=== PATIENT | male | born 1940 | race Caucasian/White ===

== ENCOUNTER 2018-03-04 06:02 | Day surgery (SDC) | payer MEDICARE ==
[2018-03-03 11:41] LABS: BASOPHILS % (AUTO) 0.5 % (0-1); EOSINOPHILS # (AUTO) 0.3 X10'3 (0-0.9); EOSINOPHILS % (AUTO) 4.6 % (0-6); HEMATOCRIT 36.9 % (42.0-52.0); HEMOGLOBIN 12.4 g/dl (14.0-17.9); LYMPHOCYTES # (AUTO) 1.2 X10'3 (1.1-4.8); LYMPHOCYTES % (AUTO) 21.3 % (21-51); MEAN CORPUSCULAR HEMOGLOBIN 31.6 PG (27.0-31.0); MEAN CORPUSCULAR HGB CONC 33.5 % (33.0-36.5); MEAN CORPUSCULAR VOLUME 94.2 FL (78-98); MEAN PLATELET VOLUME 7.5 FL (7.4-10.4); MONOCYTES # (AUTO) 0.4 X10'3 (0-0.9); NEUTROPHILS # (AUTO) 3.6 X10'3 (1.8-7.7); NEUTROPHILS % (AUTO) 65.6 % (42-75); PLATELET COUNT 297 X10'3 (140-440); RED BLOOD COUNT 3.92 X10'6 (4.70-6.10); RED CELL DISTRIBUTION WIDTH 13.3 % (11.5-14.5); WHITE BLOOD COUNT 5.5 X10'3 (4.5-11.0)
[2018-03-03 11:53] LABS: ALBUMIN 3.5 G/DL (3.4-5.0); ANION GAP 10 (8-16); BLOOD UREA NITROGEN 21 MG/DL (7-18); BUN/CREATININE RATIO 19.6 (5.4-32.0); CHLORIDE 104 MMOL/L (99-107); CREATININE 1.07 MG/DL (0.60-1.10); GLUCOSE 142 MG/DL (70-104); SODIUM 140 MMOL/L (135-145); eGFR 67 ML/MIN
[2018-03-03 11:58] LABS: PARTIAL THROMBOPLASTIN TIME 31 SECONDS (22-32); PROTHROMBIN TIME 10.5 SECONDS (9.0-12.0)
[2018-03-04] VITALS (26 sets, daily range): BP systolic 117–169; BP diastolic 63–98
[~2018-03-04] VITALS: Ht 177.8 cm; Wt 110.9 kg
[~2018-03-04 06:02] MED LIST: ALLO100T PO; ASPI-1264 PO; CALC-793 PO; CLOP75TA35 PO; CYC1OS LEFTEYE; LINA5TAB4 PO; MAGN400C PO; NITR0.4T51 SL; OMEG-15 PO; SIMV20TA5 PO
[2018-03-04] MEDS ORDERED: sod bicarbonate 150mEq in D5W 1,150 ML IV ONE (06:25)
[2018-03-04] MEDS ORDERED: diphenhydrAMINE 25mg capsule PO PRN (06:25)
[2018-03-04] MEDS ORDERED: acetylcysteine 200 MG/ml 4ml vial PO PRN (06:25)
[2018-03-04] MEDS ORDERED: LOSA100T57 PO (06:38)
[2018-03-04] MEDS ORDERED: CARV-50 PO (06:38)
[2018-03-04] MEDS ORDERED: POTA10TA19 PO (06:38)
[2018-03-04] MEDS ORDERED: ISOS30TA6 PO (06:38)
[2018-03-04] MEDS ORDERED: GLIM1TAB46 PO (06:38)
[2018-03-04] MEDS ORDERED: LORazepam 0.5 MG tablet PO ONE (07:15)
[2018-03-04] MEDS ORDERED: normal saline 1000ml 1,000 ML IV SCH (07:15)
[2018-03-04] MEDS ORDERED: nitroGLYCERIN-Tridil 50MG/D5W 250 ML IV ONE (07:41)
[2018-03-04] MEDS ORDERED: heparin 1,000unit/ml 10ml vial 10 ML ONE (07:42)
[2018-03-04] MEDS ORDERED: iohexol 350 MG/ML 50ML vial IV ONE (07:42)
[2018-03-04] MEDS ORDERED: iohexol 350 MG/1 ML 200ml bottle ONE (07:42)
[2018-03-04] MEDS ORDERED: midazolam 2 mg/2 ml injection ONE ×2 (07:42→09:45)
[2018-03-04] MEDS ORDERED: LIDOcaine 1% (10mg/ml)w/preservative injection 20ml MDV ONE ×2 (07:42→13:36)
[2018-03-04] MEDS ORDERED: fentaNYL/PF 50MCG/1 ML 2ML syringe ONE ×2 (07:42→09:45)
[2018-03-04] MEDS ORDERED: heparin 25,000 UNIT/250ml bag 250 ML IV ONE (08:52)
[2018-03-04] MEDS ORDERED: iohexol 350MG/ML 100ml bottle IV ONE ×2 (09:03→09:48)
[2018-03-04] MEDS ORDERED: clopidogrel 300mg tablet ONE (09:19)
[2018-03-04] MEDS ORDERED: heparin 1,000 UNITS/NS 500ml 500 ML ONE (09:26)
[2018-03-04] MEDS ORDERED: proCHLORperazine 10 MG/2 ml inj IV PRN (11:45)
[2018-03-04] MEDS ORDERED: magnesium hydroxide 30ml (MOM) UD suspension PO PRN (11:45)
[2018-03-04] MEDS ORDERED: OXAZEpam 15mg capsule PO PRN (11:45)
[2018-03-04] MEDS ORDERED: acetaminophen 325mg tablet PO PRN (11:45)
[2018-03-04] MEDS ORDERED: HYDROcodone/acetaminophen 10/325mg tab PO PRN ×2 (11:45→11:50)
[2018-03-04] MEDS ORDERED: cyclobenzaprine 10mg tablet PO PRN (11:50)
[2018-03-04] MEDS ORDERED: aspirin 81mg tab.chew PO ONE (11:50)
[2018-03-04 13:36] LABS: ISTAT Hct MIX 32 %PCV (42-52); ISTAT O2 SATURATION MIX VENOUS 70 % (60-80); ISTAT SOURCE MIX
[2018-03-04 13:36] LABS: ISTAT HGB ART 10.9 g/dl (14.0-18.0); ISTAT Hct ART 32 %PCV (42-52); ISTAT O2 SATURATION ARTERIAL 93 % (95-98); ISTAT SOURCE ART
--- NOTE | 2018-03-04 16:19 | NUR ---
occurrence #2 is PT's art line. The art line is being transduced and is at the phlebostatic axis. Addendum: 03/04/18 at 1627 by Kavita Mclean RN Amended: Links added.
[2018-03-04] MEDS ORDERED: docusate sod 100mg capsule PO SCH (20:00)
[2018-03-05] MEDS ORDERED: clopidogrel 75mg tablet PO SCH (08:00)
[2018-03-05] MEDS ORDERED: aspirin 325mg tablet PO SCH (08:30)
== END 2018-03-04 20:00 | disposition home or self-care (01) ==
LOC: SSTAY O 06:02
PROVIDERS: ATTEND Internal Medicine Cardiovascular Disease
DX: I25.708 Atherosclerosis of coronary artery bypass graft(s), unspecified, with other forms of angina pectoris (principal); E78.5 Hyperlipidemia, unspecified; I11.0 Hypertensive heart disease with heart failure; I50.9 Heart failure, unspecified; G47.33 Obstructive sleep apnea (adult) (pediatric); I45.19 Other right bundle-branch block; I27.20 Pulmonary hypertension, unspecified; M19.90 Unspecified osteoarthritis, unspecified site; J45.998 Other asthma; K21.9 Gastro-esophageal reflux disease without esophagitis; E11.42 Type 2 diabetes mellitus with diabetic polyneuropathy; H91.8X3 Other specified hearing loss, bilateral; Z92.3 Personal history of irradiation; Z87.09 Personal history of other diseases of the respiratory system; Z79.82 Long term (current) use of aspirin; Z85.46 Personal history of malignant neoplasm of prostate; Z95.1 Presence of aortocoronary bypass graft; Z95.2 Presence of prosthetic heart valve; Z86.73 Personal history of transient ischemic attack (TIA), and cerebral infarction without residual deficits; Z95.5 Presence of coronary angioplasty implant and graft; Z88.5 Allergy status to narcotic agent; Z88.6 Allergy status to analgesic agent; Z86.69 Personal history of other diseases of the nervous system and sense organs; Z87.891 Personal history of nicotine dependence; Z87.442 Personal history of urinary calculi; Z87.39 Personal history of other diseases of the musculoskeletal system and connective tissue; Z88.8 Allergy status to other drugs, medicaments and biological substances; Z98.890 Other specified postprocedural states; Z79.899 Other long term (current) drug therapy; Z82.49 Family history of ischemic heart disease and other diseases of the circulatory system; Z80.9 Family history of malignant neoplasm, unspecified
CPT/HCPCS: 36415; 80048; 82803; 82948; 85014; 85025; 85347; 85610; 85730; 93005; 93461; 99152; 99153; A6257; C1874; C1887; C9600; C9601; J1644; J2001; J2250; J3010; J7030; Q0163; Q9967; A4620; C1725; C1769; C1894; J3490

== ENCOUNTER 2018-06-17 08:20 | Outpatient (CLI) | payer MEDICARE ==
[2018-06-17] VITALS (9 sets, daily range): BP systolic 145–195; BP diastolic 70–87
[~2018-06-17] VITALS: Ht 177.8 cm; Wt 111.8 kg
[~2018-06-17 08:20] MED LIST changes: -ALLO100T PO; -CALC-793 PO; +CARV-50 PO; -CYC1OS LEFTEYE; +GLIM1TAB46 PO; +ISOS30TA6 PO; +LOSA100T57 PO; -OMEG-15 PO; +POTA10TA19 PO
[2018-06-17] MEDS ORDERED: nitroGLYCERIN 0.4mg SUBLingual tab SL PRN (09:15)
[2018-06-17] MEDS ORDERED: aminophylline 250mg/10ml inj. IV PRN (09:15)
[2018-06-17] MEDS ORDERED: metoprolol tartrate 1mg/ml inj IV PRN (09:15)
[2018-06-17] MEDS ORDERED: regadenoson 0.4mg/5ml syringe IV ONE ×2 (09:15→09:35)
[2018-06-17] MEDS ORDERED: aminophylline inj. 10 ML IV ONE (09:35)
[2018-06-17] MEDS ORDERED: nitroGLYCERIN 0.4mg SUBLingual tab SL ONE (09:56)
== END 2018-06-17 23:59 | disposition home or self-care (01) ==
LOC: RAD 08:20
PROVIDERS: ATTEND Internal Medicine Cardiovascular Disease
DX: R07.9 Chest pain, unspecified (principal); R06.02 Shortness of breath; R53.83 Other fatigue
CPT/HCPCS: 78452; 93017; A9500; J0280

== ENCOUNTER 2018-09-23 13:29 | Observation (INO) | payer MEDICARE ==
[~2018-09-23] VITALS: Ht 177.8 cm; Wt 111.5 kg
[~2018-09-23 13:29] MED LIST changes: +GLIM1TAB3 PO; -GLIM1TAB46 PO
[2018-09-23 14:03] LABS: BASOPHILS % (AUTO) 0.9 % (0-1); EOSINOPHILS # (AUTO) 0.3 X10'3 (0-0.9); EOSINOPHILS % (AUTO) 6.3 % (0-6); HEMATOCRIT 37.2 % (42.0-52.0); HEMOGLOBIN 12.5 g/dl (14.0-17.9); LYMPHOCYTES # (AUTO) 1.4 X10'3 (1.1-4.8); LYMPHOCYTES % (AUTO) 32.3 % (21-51); MEAN CORPUSCULAR HGB CONC 33.7 g/dL (33.0-36.5); MEAN PLATELET VOLUME 7.3 FL (7.4-10.4); MONOCYTES # (AUTO) 0.4 X10'3 (0-0.9); MONOCYTES % (AUTO) 9.7 % (2-12); NEUTROPHILS # (AUTO) 2.3 X10'3 (1.8-7.7); NEUTROPHILS % (AUTO) 50.8 % (42-75); PLATELET COUNT 226 X10'3 (140-440); RED BLOOD COUNT 3.92 X10'6 (4.70-6.10); RED CELL DISTRIBUTION WIDTH 14.1 % (11.5-14.5); WHITE BLOOD COUNT 4.4 X10'3 (4.5-11.0)
[2018-09-23 14:17] LABS: PARTIAL THROMBOPLASTIN TIME 30 SECONDS (22-32)
[2018-09-23 14:19] LABS: ALANINE AMINOTRANSFERASE 21 U/L (12-78); ALBUMIN 3.7 G/DL (3.4-5.0); ALBUMIN/GLOBULIN RATIO 1.1 (1.1-1.5); ALKALINE PHOSPHATASE 91 IU/L (46-116); ANION GAP 5 (8-16); ASPARTATE AMINO TRANSFERASE 8 U/L (10-37); BILIRUBIN,TOTAL 0.8 MG/DL (0.1-1.0); BLOOD UREA NITROGEN 19 MG/DL (7-18); BUN/CREATININE RATIO 15.6 (5.4-32.0); CALCIUM 9.1 MG/DL (8.5-10.1); CHLORIDE 107 MMOL/L (99-107); CREATININE 1.22 MG/DL (0.60-1.10); GLUCOSE 98 MG/DL (70-104); POTASSIUM 4.5 MMOL/L (3.5-5.1); SODIUM 141 MMOL/L (135-145); TOTAL CARBON DIOXIDE 28.6 MMOL/L (24-32); eGFR 57 ML/MIN
[2018-09-23] MEDS ORDERED: normal saline 1000ML IV soln IVB ONE (15:15)
[2018-09-23] MEDS: normal saline 1000ml 1,000 ML IV SCH ×2 (15:26→22:41)
[2018-09-23] MEDS ORDERED: ASPI-974 PO (15:30)
[2018-09-23] MEDS ORDERED: morphine 2 MG/ML inj. syringe IV PRN ×2 (15:30)
[2018-09-23] MEDS ORDERED: ondansetron/PF 4mg/2ml inj IV PRN (15:30)
[2018-09-23] MEDS ORDERED: acetaminophen 325mg tablet PO PRN ×2 (15:30)
[2018-09-23] MEDS ORDERED: HYDROcodone/acetaminophen 5mg/325mg tablet PO PRN (15:30)
[2018-09-23] MEDS ORDERED: mag hydrox/Alum hydrox/simeth 30ml oral suspension PO PRN (15:30)
[2018-09-23] MEDS ORDERED: magnesium hydroxide 30ml (MOM) UD suspension PO PRN (15:30)
[2018-09-23] MEDS ORDERED: CLON0.1T20 PO (15:34)
[2018-09-23] MEDS ORDERED: ATOR40TA71 PO (15:34)
[2018-09-23] MEDS ORDERED: CITA20TA2 PO (15:34)
[2018-09-23] MEDS ORDERED: PIOG30TA71 PO (15:34)
[2018-09-23] MEDS ORDERED: AMLO5TAB PO (15:34)
[2018-09-23] MEDS ORDERED: FURO-150 PO (15:34)
--- NOTE | 2018-09-23 15:39 | NUR ---
MEDICATED PT WITH 500ML NS BOLUS PER ORDERS, GAVE PT A CUP OF WATER OK PER DR SANDOVAL, OBTAINED URINE SAMPLE PER ORDERS AND SENT TO LAB. PHARMACY UPDATING MED REC, PT RESTING COMFORTABLY, ORIENTED TO CALL LIGHT
[2018-09-23 15:51] LABS: CLARITY,URINE CLEAR (Clear); COLOR,URINE YELLOW (Yellow); GLUCOSE, URINE NEGATIVE (Neg); KETONES,URINE NEGATIVE (Neg); LEUKOCYTE ESTERASE ,URINE NEGATIVE (Neg); NITRITES, URINE NEGATIVE (Neg); OCCULT BLOOD,URINE NEGATIVE (Neg); PROTEIN,URINE NEGATIVE (Neg)
[2018-09-23 15:54] LABS: UA COLLECTION TYPE VOIDED
--- NOTE | 2018-09-23 16:45 | NUR ---
received pt report from Jenise RN; all questions answered.
[2018-09-23 17:00] VITALS: BP 125/79
--- NOTE | 2018-09-23 17:00 | NUR ---
pt arrived to floor via gurney and transferred to bed. pt attached to cardiac monitoring; VSS. pt oriented to room and call light
[2018-09-23] MEDS ORDERED: glucagon, human recombinant 1mg kit SUBCUT PRN (18:00)
[2018-09-23] MEDS ORDERED: insulin Lispro (HumaLOG) vial - multi-dose SQ SCH (18:00)
[2018-09-23] MEDS ORDERED: dextrose 50%-water 50ml dispensing syringe IV PRN ×2 (18:00)
[2018-09-23] MEDS ORDERED: nitroGLYCERIN 0.4mg SUBLingual tab SL PRN (18:00)
[2018-09-23] MEDS ORDERED: MESSAGE TO PHARMACY PO ONE (18:00)
[2018-09-23] MEDS ORDERED: dextrose ORAL solution 15 GM/59 ML bottle PO PRN ×2 (18:00)
--- NOTE | 2018-09-23 18:10 | NUR ---
pt report given to Kavita SAVAGE; all questions answered.
--- NOTE | 2018-09-23 18:11 | NUR ---
Patient in room MED 313. I have received report from Inga SAVAGE and had the opportunity to ask questions and assume patient care. Checked on patient, did 2 RN skin check. Will continue to monitor.
[2018-09-23 19:00] VITALS: BP 134/86
[2018-09-23 20:00] VITALS: BP_SYST 127; BP_SYST 132; BP_SYST 160; BP_DIAS 114; BP_DIAS 68; BP_DIAS 92
[2018-09-23 20:58] LABS: HEMOGLOBIN A1C 6.7 % (4.5-6.2)
[2018-09-23] MEDS ORDERED: insulin glargine (Lantus) pen - multi-dose SQ SCH (21:00)
[2018-09-23 23:00] VITALS: BP 127/68
[2018-09-24 02:08] LABS: BASOPHILS # (AUTO) 0.1 X10'3 (0-0.2); BASOPHILS % (AUTO) 1.2 % (0-1); EOSINOPHILS # (AUTO) 0.3 X10'3 (0-0.9); HEMATOCRIT 34.8 % (42.0-52.0); HEMOGLOBIN 11.8 g/dl (14.0-17.9); LYMPHOCYTES # (AUTO) 1.2 X10'3 (1.1-4.8); MEAN CORPUSCULAR HEMOGLOBIN 32.1 PG (27.0-31.0); MEAN CORPUSCULAR HGB CONC 33.9 g/dL (33.0-36.5); MEAN CORPUSCULAR VOLUME 94.6 FL (78-98); MEAN PLATELET VOLUME 7.3 FL (7.4-10.4); MONOCYTES # (AUTO) 0.5 X10'3 (0-0.9); MONOCYTES % (AUTO) 8.6 % (2-12); NEUTROPHILS # (AUTO) 3.3 X10'3 (1.8-7.7); NEUTROPHILS % (AUTO) 61.2 % (42-75); PLATELET COUNT 183 X10'3 (140-440); RED BLOOD COUNT 3.68 X10'6 (4.70-6.10); RED CELL DISTRIBUTION WIDTH 13.8 % (11.5-14.5); WHITE BLOOD COUNT 5.4 X10'3 (4.5-11.0)
[2018-09-24 02:21] LABS: ALBUMIN 3.2 G/DL (3.4-5.0); ANION GAP 6 (8-16); BLOOD UREA NITROGEN 15 MG/DL (7-18); BUN/CREATININE RATIO 14.2 (5.4-32.0); CALCIUM 8.7 MG/DL (8.5-10.1); CHLORIDE 109 MMOL/L (99-107); CREATININE 1.06 MG/DL (0.60-1.10); GLUCOSE 111 MG/DL (70-104); POTASSIUM 3.9 MMOL/L (3.5-5.1); SODIUM 142 MMOL/L (135-145); TOTAL CARBON DIOXIDE 27.1 MMOL/L (24-32); eGFR 67 ML/MIN
[2018-09-24 03:00] VITALS: BP 133/58
--- NOTE | 2018-09-24 06:10 | NUR ---
Problems reprioritized. Patient report given, questions answered & plan of care reviewed with Inga SAVAGE.
[2018-09-24 06:30] VITALS: BP 157/74
[2018-09-24] MEDS: normal saline 1000ml 1,000 ML IV SCH (07:24)
[2018-09-24 08:00] VITALS: BP_SYST 149; BP_SYST 169; BP_SYST 175; BP_DIAS 106; BP_DIAS 86; BP_DIAS 89
[2018-09-24] MEDS ORDERED: potassium chloride 10mEq ER tablet PO SCH (08:00)
[2018-09-24] MEDS ORDERED: pioglitazone 15mg tablet PO SCH (08:00)
[2018-09-24] MEDS ORDERED: aspirin 325mg tablet PO SCH (08:00)
[2018-09-24] MEDS ORDERED: atorvastatin 20mg tablet PO SCH (08:00)
[2018-09-24] MEDS ORDERED: clopidogrel 75mg tablet PO SCH (08:00)
[2018-09-24] MEDS ORDERED: citalopram 20mg tablet PO SCH ×2 (08:00→08:35)
[2018-09-24 11:00] VITALS: BP 175/89
--- NOTE | 2018-09-24 11:29 | NUR ---
ORDER FOR CAROTID US PAGED VASCULAR ALSO PAGED PHYSICAL THERAPY FOR PT EVAL PRIOR TO DISCHARGE
[2018-09-24] MEDS ORDERED: hydrALAZINE 25 MG tablet PO PRN (12:20)
[2018-09-24 15:00] VITALS: BP 178/93
[2018-09-24] MEDS ORDERED: PIOG15TA8 PO (16:04)
[2018-09-24] MEDS ORDERED: HYDR-4069 PO (16:04)
--- NOTE | 2018-09-24 17:20 | NUR ---
DISCUSSED HOME BP MONITORING WITH PATIENT PATIENT SAYS HE HAS A HOME BP CUFF AT HOME IN WHICH HE USES TO TAKE HIS BLOOD PRESSURE "3 TIMES A DAY"; RN INSTRUCTED PATIENT THAT HYDRALAZINE HAS BEEN PRESCRIBED AN " NEEDED MEDICATION" EVERY 8 HOURS FOR HIGH BLOOD PRESSURE= HIGHER THAN 160. PATIENT VERBALIZES UNDERSTANDING.
--- NOTE | 2018-09-24 17:35 | NUR ---
d/c education provided including medications and follow up; all questions answered. pt removed from cardiac monitoring.
--- NOTE | 2018-09-24 18:14 | NUR ---
Problems reprioritized. Patient report given, questions answered & plan of care reviewed with Philly SAVAGE.
--- NOTE | 2018-09-24 18:30 | NUR ---
Patient in room MED 313. I have received report from Inga SAVAGE and had the opportunity to ask questions and assume patient care.
--- NOTE | 2018-09-24 18:40 | NUR ---
Patient remained stable. All belongings accounted for. Pt wheeled to awaiting vehicle driven by . Vehicle left without incident.
== END 2018-09-24 18:40 | disposition home or self-care (01) ==
LOC: ER 13:30 → MED 3N 16:53 → CMPBEDREQ 19:51
PROVIDERS: ADMIT Internal Medicine; ATTEND Internal Medicine
DX: I95.1 Orthostatic hypotension (principal); I25.10 Atherosclerotic heart disease of native coronary artery without angina pectoris; E78.00 Pure hypercholesterolemia, unspecified; R42 Dizziness and giddiness; E78.5 Hyperlipidemia, unspecified; F32.9 Major depressive disorder, single episode, unspecified; E11.65 Type 2 diabetes mellitus with hyperglycemia; Z79.82 Long term (current) use of aspirin; Z88.1 Allergy status to other antibiotic agents; Z86.73 Personal history of transient ischemic attack (TIA), and cerebral infarction without residual deficits
CPT/HCPCS: 36415; 71045; 80048; 80053; 81003; 82948; 83036; 83880; 84484; 85025; 85610; 85730; 87081; 93005; 93880; 96360; 96361; 97110; 97161; 97530; 99284; G0378; J1815; J7030

== ENCOUNTER 2018-10-20 11:58 | Outpatient (CLI) | payer MEDICARE ==
[2018-10-20] VITALS (19 sets, daily range): BP systolic 72–120; BP diastolic 46–61
[~2018-10-20 11:58] MED LIST changes: -ASPI-1264 PO; +ASPI-974 PO; +ATOR40TA71 PO; +CITA20TA2 PO; +FURO-150 PO; -GLIM1TAB3 PO; +HYDR-4069 PO; -LINA5TAB4 PO; -MAGN400C PO; +PIOG15TA8 PO; -SIMV20TA5 PO
== END 2018-10-20 23:59 | disposition home or self-care (01) ==
LOC: CARD DIAG 11:58
PROVIDERS: ATTEND Internal Medicine Cardiovascular Disease
DX: R42 Dizziness and giddiness (principal); I10 Essential (primary) hypertension; J45.909 Unspecified asthma, uncomplicated; E11.9 Type 2 diabetes mellitus without complications; Z87.891 Personal history of nicotine dependence
CPT/HCPCS: 93660

== ENCOUNTER 2019-10-28 12:59 | Emergency (ER) | payer MEDICARE ==
[~2019-10-28] VITALS: Ht 177.8 cm; Wt 110.9 kg
[~2019-10-28 12:59] MED LIST changes: -PIOG15TA8 PO
[2019-10-28 14:44] LABS: BASOPHILS % (AUTO) 0.2 % (0-1); EOSINOPHILS # (AUTO) 0.1 X10'3 (0-0.9); EOSINOPHILS % (AUTO) 0.7 % (0-6); HEMATOCRIT 33.2 % (42.0-52.0); HEMOGLOBIN 11.1 g/dl (14.0-17.9); LYMPHOCYTES # (AUTO) 1.6 X10'3 (1.1-4.8); LYMPHOCYTES % (AUTO) 17.7 % (21-51); MEAN CORPUSCULAR HEMOGLOBIN 31.3 PG (27.0-31.0); MEAN CORPUSCULAR HGB CONC 33.5 g/dL (33.0-36.5); MEAN CORPUSCULAR VOLUME 93.5 FL (78-98); MEAN PLATELET VOLUME 6.9 FL (7.4-10.4); MONOCYTES # (AUTO) 0.8 X10'3 (0-0.9); NEUTROPHILS # (AUTO) 6.5 X10'3 (1.8-7.7); NEUTROPHILS % (AUTO) 72.4 % (42-75); PLATELET COUNT 331 X10'3 (140-440); RED BLOOD COUNT 3.55 X10'6 (4.70-6.10); RED CELL DISTRIBUTION WIDTH 15.1 % (11.5-14.5); WHITE BLOOD COUNT 8.9 X10'3 (4.5-11.0)
[2019-10-28 14:51] LABS: ALANINE AMINOTRANSFERASE 18 U/L (12-78); ALBUMIN 3.3 G/DL (3.4-5.0); ALKALINE PHOSPHATASE 115 IU/L (46-116); ANION GAP 9 (8-16); ASPARTATE AMINO TRANSFERASE 20 U/L (10-37); BILIRUBIN,TOTAL 0.6 MG/DL (0.1-1.0); BLOOD UREA NITROGEN 38 MG/DL (7-18); CALCIUM 8.8 MG/DL (8.5-10.1); CHLORIDE 103 MMOL/L (99-107); CREATININE 1.41 MG/DL (0.60-1.10); GLUCOSE 107 MG/DL (70-104); SODIUM 139 MMOL/L (135-145); TOTAL CARBON DIOXIDE 27.4 MMOL/L (24-32); TOTAL PROTEIN 6.5 G/DL (6.4-8.2); eGFR 48 ML/MIN
[2019-10-28] MEDS ORDERED: HYDROcodone/acetaminophen 10/325mg tab PO ONE (15:45)
[2019-10-28 16:06] VITALS: BP 112/66
== END 2019-10-28 16:00 | disposition home or self-care (01) ==
LOC: ER 12:59
DX: R00.2 Palpitations (principal); M25.512 Pain in left shoulder; I25.10 Atherosclerotic heart disease of native coronary artery without angina pectoris; E78.00 Pure hypercholesterolemia, unspecified; I10 Essential (primary) hypertension; K21.9 Gastro-esophageal reflux disease without esophagitis; E11.9 Type 2 diabetes mellitus without complications; Z86.73 Personal history of transient ischemic attack (TIA), and cerebral infarction without residual deficits; Z98.61 Coronary angioplasty status; Z95.1 Presence of aortocoronary bypass graft; Z98.890 Other specified postprocedural states; Z88.5 Allergy status to narcotic agent; Z88.8 Allergy status to other drugs, medicaments and biological substances; Z79.82 Long term (current) use of aspirin; Z79.899 Other long term (current) drug therapy
CPT/HCPCS: 36415; 71045; 80053; 83880; 84484; 85025; 93005; 99285

== ENCOUNTER 2020-07-26 05:56 | Day surgery (SDC) | payer MEDICARE ==
[2020-07-25 12:01] LABS: BASOPHILS % (AUTO) 0.4 % (0-1); EOSINOPHILS # (AUTO) 0.2 X10'3 (0-0.9); EOSINOPHILS % (AUTO) 3.6 % (0-6); HEMATOCRIT 36.7 % (42.0-52.0); HEMOGLOBIN 12.4 g/dl (14.0-17.9); LYMPHOCYTES % (AUTO) 15.5 % (21-51); MEAN CORPUSCULAR HEMOGLOBIN 33.3 PG (27.0-31.0); MEAN CORPUSCULAR HGB CONC 33.6 g/dL (33.0-36.5); MEAN CORPUSCULAR VOLUME 99.1 FL (78-98); MEAN PLATELET VOLUME 7.1 FL (7.4-10.4); MONOCYTES # (AUTO) 0.6 X10'3 (0-0.9); MONOCYTES % (AUTO) 9.2 % (2-12); NEUTROPHILS # (AUTO) 4.6 X10'3 (1.8-7.7); NEUTROPHILS % (AUTO) 71.3 % (42-75); PLATELET COUNT 224 X10'3 (140-440); RED BLOOD COUNT 3.71 X10'6 (4.70-6.10); RED CELL DISTRIBUTION WIDTH 13.9 % (11.5-14.5); WHITE BLOOD COUNT 6.5 X10'3 (4.5-11.0)
[2020-07-25 12:20] LABS: ALBUMIN 3.5 G/DL (3.4-5.0); ANION GAP 10 (8-16); BLOOD UREA NITROGEN 19 MG/DL (7-18); BUN/CREATININE RATIO 15.6 (5.4-32.0); CALCIUM 8.9 MG/DL (8.5-10.1); CHLORIDE 106 MMOL/L (99-107); CREATININE 1.22 MG/DL (0.60-1.10); GLUCOSE 132 MG/DL (70-104); POTASSIUM 4.1 MMOL/L (3.5-5.1); SODIUM 143 MMOL/L (135-145); eGFR 57 ML/MIN
[2020-07-25 12:24] LABS: PARTIAL THROMBOPLASTIN TIME 28 SECONDS (22-32)
[2020-07-26] VITALS (10 sets, daily range): BP systolic 124–177; BP diastolic 58–96
[~2020-07-26] VITALS: Ht 177.8 cm; Wt 114.4 kg
[~2020-07-26 05:56] MED LIST changes: +ACET-890 PO; +ALBU18HF2 INH; +ALLO100T PO; +AMLO5TAB16 PO; +APIX5TAB3 PO; -ASPI-974 PO; +CLOP75TA34 PO; -CLOP75TA35 PO; +FERR-39 PO; -FURO-150 PO; -HYDR-4069 PO; -ISOS30TA6 PO; +ISOS30TA84 PO; +PANT40TA54 PO; +PIOG30TA72 PO; +XAL0.005OS EACHEYE
[2020-07-26] MEDS ORDERED: ceFAZolin 2gm in dextrose, iso 50 ML IV ONE (06:20)
[2020-07-26] MEDS ORDERED: ASPI-10 PO (06:30)
[2020-07-26] MEDS ORDERED: PANT-47 PO (06:30)
[2020-07-26] MEDS ORDERED: FURO-150 PO (06:30)
[2020-07-26] MEDS ORDERED: ceFAZolin 1000mg inj ONE (07:11)
[2020-07-26] MEDS ORDERED: midazolam 1 mg/ML 2ml injection ONE ×2 (07:11→09:11)
[2020-07-26] MEDS ORDERED: LIDOcaine 1% W/epiNEPHrine 1:100,000 20ml vial ONE (07:11)
[2020-07-26] MEDS ORDERED: fentaNYL/PF 50MCG/1 ML 2ML syringe ONE (07:11)
[2020-07-26] MEDS ORDERED: hydrALAZINE 20mg/ml inj. IV ONE (08:30)
[2020-07-26] MEDS ORDERED: HYDROcodone/acetaminophen 5mg/325mg tablet PO PRN (10:25)
[2020-07-26] MEDS ORDERED: HYDROcodone/acetaminophen 10/325mg tab PO PRN (10:25)
[2020-07-26] MEDS ORDERED: vancomycin/NS 1 GM ADD-VANTAGE 250 ML X 1 DOSE IV ONE (11:30)
== END 2020-07-26 15:00 | disposition home or self-care (01) ==
LOC: SSTAY O 05:56
PROVIDERS: ATTEND Internal Medicine Cardiovascular Disease
DX: I49.5 Sick sinus syndrome (principal); I48.19 Other persistent atrial fibrillation; E78.5 Hyperlipidemia, unspecified; I50.32 Chronic diastolic (congestive) heart failure; I25.10 Atherosclerotic heart disease of native coronary artery without angina pectoris; I48.0 Paroxysmal atrial fibrillation; I11.0 Hypertensive heart disease with heart failure; E11.9 Type 2 diabetes mellitus without complications; E66.3 Overweight; G47.33 Obstructive sleep apnea (adult) (pediatric); I27.20 Pulmonary hypertension, unspecified; Z98.890 Other specified postprocedural states; Z88.8 Allergy status to other drugs, medicaments and biological substances; Z79.899 Other long term (current) drug therapy; Z95.4 Presence of other heart-valve replacement; Z79.01 Long term (current) use of anticoagulants; Z95.5 Presence of coronary angioplasty implant and graft
CPT/HCPCS: 33208; 36415; 71046; 80048; 82948; 85025; 85610; 85730; 93005; 99152; 99153; C1785; C1894; C1898; J0360; J0690; J2250; J3010; J3370; A4565; A4620; A6258; A6449

== ENCOUNTER → 2020-10-19 | Emergency (ER) | payer MEDICARE ==
[~2020-10-19] VITALS: Ht 177.8 cm; Wt 109.0 kg
[~2020-10-19] MED LIST changes: -APIX5TAB3 PO; +ASPI-10 PO; -CARV-50 PO; +CARV6.252 PO; +FURO-150 PO; +PANT-47 PO; -PANT40TA54 PO; +WARF-55 PO
[2020-10-19 18:51] VITALS: BP 187/99
== END | disposition home or self-care (01) ==
LOC: ER 13:13
DX: I10 Essential (primary) hypertension (principal); R51.9 Headache, unspecified; I48.91 Unspecified atrial fibrillation; I25.10 Atherosclerotic heart disease of native coronary artery without angina pectoris; E78.00 Pure hypercholesterolemia, unspecified; K21.9 Gastro-esophageal reflux disease without esophagitis; E11.9 Type 2 diabetes mellitus without complications; Z86.73 Personal history of transient ischemic attack (TIA), and cerebral infarction without residual deficits; Z87.442 Personal history of urinary calculi; Z98.890 Other specified postprocedural states; Z88.8 Allergy status to other drugs, medicaments and biological substances; Z88.6 Allergy status to analgesic agent; Z79.82 Long term (current) use of aspirin; Z79.899 Other long term (current) drug therapy
CPT/HCPCS: 70450; 99284

== ENCOUNTER 2021-04-06 14:07 | Outpatient (CLI) | payer MEDICARE ==
[~2021-04-06] VITALS: Ht 177.8 cm; Wt 118.4 kg
[~2021-04-06 14:07] MED LIST changes: +POTA-192 PO; -POTA10TA19 PO
[2021-04-06] MEDS ORDERED: albuterol 2.5 MG/3 ML nebule NEB ONE (15:00)
== END 2021-04-06 23:59 | disposition home or self-care (01) ==
LOC: RT 14:07
PROVIDERS: ATTEND Internal Medicine Cardiovascular Disease
DX: J43.9 Emphysema, unspecified (principal); I51.7 Cardiomegaly; M40.294 Other kyphosis, thoracic region; Z79.899 Other long term (current) drug therapy
CPT/HCPCS: 71046; 94060; 94727; 94729; 94760

== ENCOUNTER 2021-06-08 14:39 | Emergency (ER) | payer MEDICARE ==
[~2021-06-08] VITALS: Ht 177.8 cm; Wt 118.6 kg
[2021-06-08 15:58] LABS: BASOPHILS # (AUTO) 0.1 X10'3 (0-0.2); EOSINOPHILS # (AUTO) 0.3 X10'3 (0-0.9); EOSINOPHILS % (AUTO) 5.1 % (0-6); HEMATOCRIT 35.9 % (42.0-52.0); HEMOGLOBIN 12.3 g/dl (14.0-17.9); LYMPHOCYTES # (AUTO) 1.2 X10'3 (1.1-4.8); LYMPHOCYTES % (AUTO) 19.6 % (21-51); MEAN CORPUSCULAR HEMOGLOBIN 32.6 PG (27.0-31.0); MEAN CORPUSCULAR HGB CONC 34.2 g/dL (33.0-36.5); MEAN CORPUSCULAR VOLUME 95.5 FL (78-98); MEAN PLATELET VOLUME 7.3 FL (7.4-10.4); MONOCYTES # (AUTO) 0.6 X10'3 (0-0.9); MONOCYTES % (AUTO) 9.1 % (2-12); NEUTROPHILS % (AUTO) 65.2 % (42-75); PLATELET COUNT 213 X10'3 (140-440); RED BLOOD COUNT 3.76 X10'6 (4.70-6.10); RED CELL DISTRIBUTION WIDTH 13.8 % (11.5-14.5); WHITE BLOOD COUNT 6.2 X10'3 (4.5-11.0)
[2021-06-08 16:09] LABS: ALANINE AMINOTRANSFERASE 20 U/L (12-78); ALBUMIN 3.6 G/DL (3.4-5.0); ALBUMIN/GLOBULIN RATIO 1.2 (1.1-1.5); ALKALINE PHOSPHATASE 115 IU/L (46-116); ANION GAP 7 (8-16); ASPARTATE AMINO TRANSFERASE 12 U/L (10-37); BILIRUBIN,TOTAL 0.9 MG/DL (0.1-1.0); BLOOD UREA NITROGEN 12 MG/DL (7-18); BUN/CREATININE RATIO 10.3 (5.4-32.0); CALCIUM 8.6 MG/DL (8.5-10.1); CHLORIDE 104 MMOL/L (99-107); CREATININE 1.16 MG/DL (0.60-1.10); GLUCOSE 130 MG/DL (70-104); POTASSIUM 3.5 MMOL/L (3.5-5.1); SODIUM 140 MMOL/L (135-145); TOTAL CARBON DIOXIDE 29.5 MMOL/L (24-32); TOTAL PROTEIN 6.5 G/DL (6.4-8.2); eGFR 60 ML/MIN
[2021-06-08 17:39] VITALS: BP 160/85
== END 2021-06-08 22:39 | disposition home or self-care (01) ==
LOC: ER 14:40
DX: M79.602 Pain in left arm (principal); R53.83 Other fatigue; I10 Essential (primary) hypertension; I48.91 Unspecified atrial fibrillation; E78.00 Pure hypercholesterolemia, unspecified; K21.9 Gastro-esophageal reflux disease without esophagitis; E11.9 Type 2 diabetes mellitus without complications; Z86.73 Personal history of transient ischemic attack (TIA), and cerebral infarction without residual deficits; Z87.442 Personal history of urinary calculi; Z95.5 Presence of coronary angioplasty implant and graft; Z95.0 Presence of cardiac pacemaker; Z79.899 Other long term (current) drug therapy; Z88.8 Allergy status to other drugs, medicaments and biological substances; Z79.82 Long term (current) use of aspirin; Z79.01 Long term (current) use of anticoagulants
CPT/HCPCS: 36415; 71045; 80053; 83880; 84484; 85025; 93005; 99285

== ENCOUNTER 2021-08-14 16:19 | Emergency (ER) | payer MEDICARE ==
[~2021-08-14] VITALS: Ht 177.8 cm; Wt 118.6 kg
[2021-08-14 17:01] LABS: BASOPHILS % (AUTO) 0.6 % (0-1); EOSINOPHILS # (AUTO) 0.2 X10'3 (0-0.9); EOSINOPHILS % (AUTO) 5.1 % (0-6); HEMATOCRIT 33.1 % (42.0-52.0); LYMPHOCYTES % (AUTO) 23.7 % (21-51); MEAN CORPUSCULAR HEMOGLOBIN 31.7 PG (27.0-31.0); MEAN CORPUSCULAR HGB CONC 33.1 g/dL (33.0-36.5); MEAN CORPUSCULAR VOLUME 95.9 FL (78-98); MEAN PLATELET VOLUME 7.3 FL (7.4-10.4); MONOCYTES # (AUTO) 0.4 X10'3 (0-0.9); NEUTROPHILS # (AUTO) 2.6 X10'3 (1.8-7.7); NEUTROPHILS % (AUTO) 60.6 % (42-75); PLATELET COUNT 216 X10'3 (140-440); RED BLOOD COUNT 3.45 X10'6 (4.70-6.10); WHITE BLOOD COUNT 4.2 X10'3 (4.5-11.0)
[2021-08-14 17:25] LABS: ALANINE AMINOTRANSFERASE 18 U/L (12-78); ALBUMIN 3.5 G/DL (3.4-5.0); ALBUMIN/GLOBULIN RATIO 1.2 (1.1-1.5); ALKALINE PHOSPHATASE 99 IU/L (46-116); ANION GAP 11 (8-16); ASPARTATE AMINO TRANSFERASE 13 U/L (10-37); BILIRUBIN,TOTAL 0.7 MG/DL (0.1-1.0); BLOOD UREA NITROGEN 19 MG/DL (7-18); BUN/CREATININE RATIO 13.7 (5.4-32.0); CALCIUM 8.7 MG/DL (8.5-10.1); CHLORIDE 108 MMOL/L (99-107); CREATININE 1.39 MG/DL (0.60-1.10); GLUCOSE 100 MG/DL (70-104); POTASSIUM 3.9 MMOL/L (3.5-5.1); SODIUM 147 MMOL/L (135-145); TOTAL CARBON DIOXIDE 28.2 MMOL/L (24-32); TOTAL PROTEIN 6.5 G/DL (6.4-8.2); eGFR 49 ML/MIN
[2021-08-15 00:27] VITALS: BP 150/70
== END 2021-08-15 00:35 | disposition home or self-care (01) ==
LOC: ER 16:20
DX: R07.89 Other chest pain (principal); R60.0 Localized edema; R06.02 Shortness of breath; M79.89 Other specified soft tissue disorders; I48.91 Unspecified atrial fibrillation; I25.10 Atherosclerotic heart disease of native coronary artery without angina pectoris; E78.00 Pure hypercholesterolemia, unspecified; I10 Essential (primary) hypertension; K21.9 Gastro-esophageal reflux disease without esophagitis; E11.9 Type 2 diabetes mellitus without complications; Z86.73 Personal history of transient ischemic attack (TIA), and cerebral infarction without residual deficits; Z87.442 Personal history of urinary calculi; Z98.890 Other specified postprocedural states; Z95.0 Presence of cardiac pacemaker; Z88.6 Allergy status to analgesic agent; Z88.8 Allergy status to other drugs, medicaments and biological substances; Z79.82 Long term (current) use of aspirin; Z79.899 Other long term (current) drug therapy
CPT/HCPCS: 36415; 71045; 80053; 83880; 84484; 85025; 93005; 99285

== ENCOUNTER 2021-09-23 16:46 | Emergency (ER) | payer MEDICARE ==
[~2021-09-23] VITALS: Ht 172.7 cm; Wt 110.0 kg
[2021-09-23] MEDS ORDERED: furosemide 40mg/4ml inj IV ONE (18:00)
[2021-09-23 18:13] LABS: BASOPHILS % (AUTO) 0.6 % (0-1); EOSINOPHILS # (AUTO) 0.2 X10'3 (0-0.9); EOSINOPHILS % (AUTO) 4.9 % (0-6); HEMATOCRIT 34.5 % (42.0-52.0); HEMOGLOBIN 11.7 g/dl (14.0-17.9); LYMPHOCYTES # (AUTO) 0.9 X10'3 (1.1-4.8); LYMPHOCYTES % (AUTO) 19.9 % (21-51); MEAN CORPUSCULAR HEMOGLOBIN 32.9 PG (27.0-31.0); MEAN CORPUSCULAR HGB CONC 33.8 g/dL (33.0-36.5); MEAN CORPUSCULAR VOLUME 97.3 FL (78-98); MONOCYTES # (AUTO) 0.5 X10'3 (0-0.9); MONOCYTES % (AUTO) 9.8 % (2-12); NEUTROPHILS % (AUTO) 64.8 % (42-75); PLATELET COUNT 196 X10'3 (140-440); RED BLOOD COUNT 3.55 X10'6 (4.70-6.10); RED CELL DISTRIBUTION WIDTH 14.9 % (11.5-14.5); WHITE BLOOD COUNT 4.6 X10'3 (4.5-11.0)
[2021-09-23 18:44] LABS: ALANINE AMINOTRANSFERASE 21 U/L (12-78); ALBUMIN 3.4 G/DL (3.4-5.0); ALBUMIN/GLOBULIN RATIO 1.1 (1.1-1.5); ALKALINE PHOSPHATASE 95 IU/L (46-116); ANION GAP 10 (8-16); ASPARTATE AMINO TRANSFERASE 12 U/L (10-37); BILIRUBIN,TOTAL 0.7 MG/DL (0.1-1.0); BLOOD UREA NITROGEN 24 MG/DL (7-18); BUN/CREATININE RATIO 17.4 (5.4-32.0); CALCIUM 8.7 MG/DL (8.5-10.1); CHLORIDE 105 MMOL/L (99-107); CREATININE 1.38 MG/DL (0.60-1.10); GLUCOSE 172 MG/DL (70-104); POTASSIUM 3.8 MMOL/L (3.5-5.1); SODIUM 141 MMOL/L (135-145); TOTAL CARBON DIOXIDE 26.1 MMOL/L (24-32); TOTAL PROTEIN 6.5 G/DL (6.4-8.2); eGFR 49 ML/MIN
[2021-09-23 20:14] VITALS: BP 118/87
[2021-09-24 07:33] LABS: OCCULT BLOOD STOOL NEGATIVE (Neg)
== END 2021-09-23 20:17 | disposition home or self-care (01) ==
LOC: ER 16:46
DX: I11.0 Hypertensive heart disease with heart failure (principal); I50.9 Heart failure, unspecified; R60.9 Edema, unspecified; K92.1 Melena; I48.91 Unspecified atrial fibrillation; I25.10 Atherosclerotic heart disease of native coronary artery without angina pectoris; E78.00 Pure hypercholesterolemia, unspecified; K21.9 Gastro-esophageal reflux disease without esophagitis; E11.9 Type 2 diabetes mellitus without complications; Z87.442 Personal history of urinary calculi; Z95.5 Presence of coronary angioplasty implant and graft; Z95.0 Presence of cardiac pacemaker; Z88.8 Allergy status to other drugs, medicaments and biological substances; Z79.899 Other long term (current) drug therapy; Z79.82 Long term (current) use of aspirin; Z79.01 Long term (current) use of anticoagulants
CPT/HCPCS: 36415; 71045; 80053; 82272; 83880; 84484; 85025; 93005; 96374; 99285; J1940; A4615

== ENCOUNTER 2021-11-27 19:42 | Inpatient (IN) | payer MEDICARE ==
[~2021-11-27] VITALS: Ht 177.8 cm; Wt 118.6 kg
[2021-11-27 20:22] LABS: BASOPHILS % (AUTO) 0.8 % (0-1); EOSINOPHILS # (AUTO) 0.2 X10'3 (0-0.9); EOSINOPHILS % (AUTO) 3.6 % (0-6); HEMATOCRIT 32.1 % (42.0-52.0); HEMOGLOBIN 10.9 g/dl (14.0-17.9); LYMPHOCYTES # (AUTO) 1.1 X10'3 (1.1-4.8); LYMPHOCYTES % (AUTO) 19.5 % (21-51); MEAN CORPUSCULAR HEMOGLOBIN 33.3 PG (27.0-31.0); MEAN CORPUSCULAR HGB CONC 33.9 g/dL (33.0-36.5); MEAN CORPUSCULAR VOLUME 98.2 FL (78-98); MEAN PLATELET VOLUME 7.6 FL (7.4-10.4); MONOCYTES # (AUTO) 0.6 X10'3 (0-0.9); MONOCYTES % (AUTO) 11.4 % (2-12); NEUTROPHILS # (AUTO) 3.7 X10'3 (1.8-7.7); NEUTROPHILS % (AUTO) 64.7 % (42-75); PLATELET COUNT 192 X10'3 (140-440); RED BLOOD COUNT 3.27 X10'6 (4.70-6.10); RED CELL DISTRIBUTION WIDTH 14.5 % (11.5-14.5); WHITE BLOOD COUNT 5.7 X10'3 (4.5-11.0)
[2021-11-27 20:29] LABS: ALANINE AMINOTRANSFERASE 17 U/L (12-78); ALBUMIN 3.3 G/DL (3.4-5.0); ALBUMIN/GLOBULIN RATIO 1.1 (1.1-1.5); ALKALINE PHOSPHATASE 82 IU/L (46-116); ANION GAP 9 (8-16); ASPARTATE AMINO TRANSFERASE 12 U/L (10-37); BILIRUBIN,TOTAL 0.6 MG/DL (0.1-1.0); BLOOD UREA NITROGEN 57 MG/DL (7-18); BUN/CREATININE RATIO 17.3 (5.4-32.0); CALCIUM 8.8 MG/DL (8.5-10.1); CHLORIDE 103 MMOL/L (99-107); CREATININE 3.29 MG/DL (0.60-1.10); GLUCOSE 162 MG/DL (70-104); POTASSIUM 5.2 MMOL/L (3.5-5.1); SODIUM 134 MMOL/L (135-145); TOTAL PROTEIN 6.2 G/DL (6.4-8.2); eGFR 18 ML/MIN
[2021-11-27] MEDS ORDERED: CefTRIAXone 2gm/D5W 50ml BAG 50 ML IV ONE (22:00)
[2021-11-27] MEDS ORDERED: normal saline 1000ML IV soln IV ONE (22:00)
--- NOTE | 2021-11-27 22:15 | NUR ---
2158> reassessment done at the bedside, found pt to be hypotensive , SBP on the 70s and MAP <65 ( 57-60) , placed on trendelenburg position 2214> 2nd IV placed on Rt AC G20, blood draw done , bloodculture x2 drawn , 2L NSS bolus infused on bilat IV
[2021-11-27 23:36] LABS: CLARITY,URINE CLEAR (Clear); COLOR,URINE YELLOW (Yellow); GLUCOSE, URINE NEGATIVE (Neg); KETONES,URINE NEGATIVE (Neg); LEUKOCYTE ESTERASE ,URINE NEGATIVE (Neg); NITRITES, URINE NEGATIVE (Neg); OCCULT BLOOD,URINE NEGATIVE (Neg); PH,URINE 5.5 (4.8-8.0); PROTEIN,URINE NEGATIVE (Neg); UROBILINOGEN,URINE 0.2 E.U/dL (0.2-1.0)
[2021-11-27 23:50] LABS: UA COLLECTION TYPE URINAL
[2021-11-28] MEDS ORDERED: glucagon, human recombinant 1mg kit SUBCUT PRN (00:05)
[2021-11-28] MEDS ORDERED: mag hydrox/Alum hydrox/simeth 30ml oral suspension PO PRN (00:05)
[2021-11-28] MEDS ORDERED: dextrose 50%-water 50ml dispensing syringe IV PRN ×2 (00:05)
[2021-11-28] MEDS ORDERED: magnesium hydroxide 30ml (MOM) UD suspension PO PRN (00:05)
[2021-11-28] MEDS ORDERED: insulin Lispro (HumaLOG) vial - multi-dose SQ SCH (00:05)
[2021-11-28] MEDS ORDERED: DEXTROSE 15 GM of carb/4 tabs (each vial/BOTTLE has 4 tablets) PO PRN ×2 (00:05)
[2021-11-28] MEDS ORDERED: ondansetron/PF 4mg/2ml inj IV PRN (00:05)
[2021-11-28] MEDS ORDERED: MESSAGE TO PHARMACY PO ONE (00:05)
[2021-11-28] MEDS ORDERED: morphine 2 MG/ML inj. syringe IV PRN ×2 (00:05)
[2021-11-28] MEDS ORDERED: acetaminophen 325mg tablet PO PRN ×2 (00:05)
[2021-11-28 00:52] LABS: HEMOGLOBIN A1C 7.1 % (4.5-6.2)
--- NOTE | 2021-11-28 03:10 | NUR ---
>pt assisted to bedside commode, still connected to shelter monitor due to extensive cardiac hx and has pacemaker, call light within reached
[2021-11-28] MEDS: normal saline 1000ml 1,000 ML IV SCH ×2 (03:40→20:05)
--- NOTE | 2021-11-28 06:05 | NUR ---
> pt had total of 800 ml UO and 2 BM for the whole shift, connected to monitor tech, with pacemaker , hx of CABG and 8 stents , with pig valve
[2021-11-28] MEDS: docusate sod 100mg capsule PO SCH ×2 (08:00→20:00)
[2021-11-28] MEDS ORDERED: FURO-150 PO (09:26)
[2021-11-28] MEDS ORDERED: CARV-50 PO (09:26)
[2021-11-28] MEDS ORDERED: POTA-188 PO (09:26)
[2021-11-28] MEDS ORDERED: SPIR50TA5 PO (09:28)
[2021-11-28] MEDS ORDERED: ALLO100T PO (09:28)
[2021-11-28] MEDS: pantoprazole 40mg Tablet.DR PO SCH (12:25)
[2021-11-28] MEDS: clopidogrel 75mg tablet PO SCH (12:25)
[2021-11-28] MEDS: isosorbide mononitrate 30mg tab.SR.24H PO SCH (12:25)
[2021-11-28] MEDS: ferrous sulfate 325mg tablet PO SCH (12:25)
[2021-11-28] MEDS ORDERED: nitroGLYCERIN 0.4mg SUBLingual tab SL PRN (12:25)
[2021-11-28] MEDS ORDERED: APIX5TAB3 PO (15:12)
[2021-11-28] MEDS ORDERED: ACET-1025 PO (15:13)
[2021-11-28] MEDS ORDERED: LORA10TA7 PO (15:14)
--- NOTE | 2021-11-28 15:33 | NUR ---
REPORT RECD BY SOFY SAVAGE
[2021-11-28] MEDS ORDERED: albuterol 2.5 MG/3 ML nebule NEB PRN (16:00)
[2021-11-28 16:36] VITALS: BP_SYST 109; BP_SYST 127; BP_SYST 132; BP_DIAS 63; BP_DIAS 65; BP_DIAS 67
[2021-11-28 16:40] VITALS: BP 132/65
[2021-11-28] MEDS ORDERED: loratadine 10mg tablet PO PRN (17:40)
[2021-11-28 18:00] VITALS: BP 148/76
[2021-11-28] MEDS: allopurinol 100mg tablet PO SCH (18:03)
[2021-11-28] MEDS: carVEDilol 12.5mg tablet PO SCH (18:03)
--- NOTE | 2021-11-28 18:39 | NUR ---
Problems reprioritized. Patient report given, questions answered & plan of care reviewed with MAI SAVAGE.
--- NOTE | 2021-11-28 18:41 | NUR ---
PAGED DR LINDO RE: PAGER ID: [phone] MESSAGE: ALEC HUFFMAN. + [facility] [phone]
[2021-11-28] MEDS ORDERED: carVEDilol 12.5mg tablet PO SCH (20:00)
[2021-11-28] MEDS: apixaban 5mg tablet PO SCH (20:11)
[2021-11-28] MEDS ORDERED: insulin glargine (Lantus) pen - multi-dose SQ SCH (21:00)
[2021-11-28] MEDS ORDERED: atorvastatin 20mg tablet PO SCH (21:00)
[2021-11-28] MEDS ORDERED: latanoprost 0.005% 2.5ml ophthalmic drops EACHEYE SCH (21:00)
[2021-11-29] VITALS: BP 111/53
[2021-11-29] MEDS: normal saline 1000ml 1,000 ML IV SCH ×3 (01:00→06:17)
[2021-11-29 06:00] VITALS: BP 136/65
--- NOTE | 2021-11-29 06:22 | NUR ---
Problems reprioritized. Patient report given, questions answered & plan of care reviewed with Maryoj SAVAGE. Addendum: 11/29/21 at 0622 by Tatianna Gerardo RN Amended: Links added.
--- NOTE | 2021-11-29 06:45 | NUR ---
Patient in room PCU 3018. I have received report from MAI SAVAGE and had the opportunity to ask questions and assume patient care.
[2021-11-29 07:36] LABS: BASOPHILS % (AUTO) 0.9 % (0-1); EOSINOPHILS # (AUTO) 0.2 X10'3 (0-0.9); EOSINOPHILS % (AUTO) 4.5 % (0-6); HEMATOCRIT 31.8 % (42.0-52.0); HEMOGLOBIN 10.9 g/dl (14.0-17.9); LYMPHOCYTES # (AUTO) 0.9 X10'3 (1.1-4.8); LYMPHOCYTES % (AUTO) 20.4 % (21-51); MEAN CORPUSCULAR HEMOGLOBIN 33.4 PG (27.0-31.0); MEAN CORPUSCULAR HGB CONC 34.2 g/dL (33.0-36.5); MEAN CORPUSCULAR VOLUME 97.6 FL (78-98); MEAN PLATELET VOLUME 7.3 FL (7.4-10.4); MONOCYTES # (AUTO) 0.4 X10'3 (0-0.9); MONOCYTES % (AUTO) 9.2 % (2-12); NEUTROPHILS # (AUTO) 2.9 X10'3 (1.8-7.7); PLATELET COUNT 193 X10'3 (140-440); RED BLOOD COUNT 3.26 X10'6 (4.70-6.10); RED CELL DISTRIBUTION WIDTH 13.7 % (11.5-14.5); WHITE BLOOD COUNT 4.4 X10'3 (4.5-11.0)
[2021-11-29] MEDS: clopidogrel 75mg tablet PO SCH (07:57)
[2021-11-29] MEDS: ferrous sulfate 325mg tablet PO SCH (07:57)
[2021-11-29] MEDS: pantoprazole 40mg Tablet.DR PO SCH (07:57)
[2021-11-29] MEDS: docusate sod 100mg capsule PO SCH (07:57)
[2021-11-29] MEDS: apixaban 5mg tablet PO SCH (07:57)
[2021-11-29] MEDS: carVEDilol 12.5mg tablet PO SCH (07:58)
[2021-11-29] MEDS: isosorbide mononitrate 30mg tab.SR.24H PO SCH (07:58)
[2021-11-29] MEDS: allopurinol 100mg tablet PO SCH (07:58)
[2021-11-29 08:00] LABS: ALBUMIN 3.2 G/DL (3.4-5.0); ANION GAP 8 (8-16); BLOOD UREA NITROGEN 42 MG/DL (7-18); BUN/CREATININE RATIO 22.3 (5.4-32.0); CALCIUM 8.7 MG/DL (8.5-10.1); CHLORIDE 110 MMOL/L (99-107); CREATININE 1.88 MG/DL (0.60-1.10); GLUCOSE 121 MG/DL (70-104); POTASSIUM 5.1 MMOL/L (3.5-5.1); SODIUM 142 MMOL/L (135-145); TOTAL CARBON DIOXIDE 23.6 MMOL/L (24-32); eGFR 34 ML/MIN
[2021-11-29] MEDS ORDERED: citalopram 20mg tablet PO SCH (08:00)
--- NOTE | 2021-11-29 09:10 | NUR ---
DM consult: Pt w/ hx of DM A1c 7.1 per EMR. Well controlled and appropriate for age per ADA guidelines. DM ed not indicated at this time. Addendum: 11/29/21 at [address] Amended: Links added.
[2021-11-29 12:01] VITALS: BP_SYST 109; BP_SYST 97; BP_DIAS 53; BP_DIAS 65
[2021-11-29] MEDS ORDERED: SPIR25TA5 PO (14:25)
--- NOTE | 2021-11-29 15:34 | NUR ---
patient up pleasent and cooperative during shift, worked with PT. Received DC orders this afternoon, Dis Addendum: 11/29/21 at 1551 by Radha Walker RN Patients discharge medication changes reviewed, Follow up reviewed. IV removed, canula intact. Patient left at 1510.
== END 2021-11-29 15:26 | disposition home health service (06) | DRG 640 ==
LOC: ER 19:43 → ED HOLD 11-28 00:08 → EDBEDREQ 11-28 12:36 → PCU 3S 11-28 17:18
PROVIDERS: ADMIT Internal Medicine; ATTEND Internal Medicine
DX: E86.0 Dehydration (principal); N17.0 Acute kidney failure with tubular necrosis; I13.0 Hypertensive heart and chronic kidney disease with heart failure and stage 1 through stage 4 chronic kidney disease, or unspecified chronic kidney disease; I50.32 Chronic diastolic (congestive) heart failure; I95.1 Orthostatic hypotension; E11.22 Type 2 diabetes mellitus with diabetic chronic kidney disease; E78.00 Pure hypercholesterolemia, unspecified; F32.A Depression, unspecified; I25.10 Atherosclerotic heart disease of native coronary artery without angina pectoris; I48.0 Paroxysmal atrial fibrillation; I49.5 Sick sinus syndrome; M10.9 Gout, unspecified; K21.9 Gastro-esophageal reflux disease without esophagitis; N18.9 Chronic kidney disease, unspecified; Z79.01 Long term (current) use of anticoagulants; Z82.49 Family history of ischemic heart disease and other diseases of the circulatory system; Z86.73 Personal history of transient ischemic attack (TIA), and cerebral infarction without residual deficits; Z87.442 Personal history of urinary calculi; Z91.119 Patient's noncompliance with dietary regimen due to unspecified reason; Z91.14 Patient's other noncompliance with medication regimen; Z95.0 Presence of cardiac pacemaker; Z95.1 Presence of aortocoronary bypass graft; Z95.2 Presence of prosthetic heart valve; Z88.8 Allergy status to other drugs, medicaments and biological substances; Z98.61 Coronary angioplasty status; Z79.02 Long term (current) use of antithrombotics/antiplatelets
CPT/HCPCS: 36415; 71045; 76770; 80048; 80053; 81003; 82948; 83036; 83605; 83880; 84145; 84484; 85025; 85610; 87040; 87081; 93005; 97116; 97161; 97530; 99285; G0378; J0696; J1815; J7030

== ENCOUNTER 2021-12-20 14:16 | Emergency (ER) | payer MEDICARE ==
[~2021-12-20] VITALS: Ht 177.8 cm; Wt 118.6 kg
[~2021-12-20 14:16] MED LIST changes: +ACET-1025 PO; -ACET-890 PO; -ALBU18HF2 INH; -AMLO5TAB16 PO; +APIX5TAB3 PO; -ASPI-10 PO; +CARV-50 PO; -CARV6.252 PO; -FURO-150 PO; +LORA10TA7 PO; -LOSA100T57 PO; -PANT-47 PO; -POTA-192 PO; +SPIR25TA5 PO; -WARF-55 PO
[2021-12-20 15:52] LABS: BASOPHILS % (AUTO) 0.9 % (0-1); EOSINOPHILS # (AUTO) 0.2 X10'3 (0-0.9); EOSINOPHILS % (AUTO) 4.4 % (0-6); HEMOGLOBIN 11.6 g/dl (14.0-17.9); LYMPHOCYTES # (AUTO) 0.9 X10'3 (1.1-4.8); LYMPHOCYTES % (AUTO) 21.8 % (21-51); MEAN CORPUSCULAR HEMOGLOBIN 33.1 PG (27.0-31.0); MEAN CORPUSCULAR HGB CONC 33.2 g/dL (33.0-36.5); MEAN CORPUSCULAR VOLUME 99.9 FL (78-98); MEAN PLATELET VOLUME 6.8 FL (7.4-10.4); MONOCYTES # (AUTO) 0.5 X10'3 (0-0.9); MONOCYTES % (AUTO) 11.4 % (2-12); NEUTROPHILS # (AUTO) 2.6 X10'3 (1.8-7.7); NEUTROPHILS % (AUTO) 61.5 % (42-75); PLATELET COUNT 207 X10'3 (140-440); RED BLOOD COUNT 3.51 X10'6 (4.70-6.10); RED CELL DISTRIBUTION WIDTH 15.3 % (11.5-14.5); WHITE BLOOD COUNT 4.3 X10'3 (4.5-11.0)
[2021-12-20 15:59] LABS: ALANINE AMINOTRANSFERASE 19 U/L (12-78); ALBUMIN 3.3 G/DL (3.4-5.0); ALBUMIN/GLOBULIN RATIO 1.1 (1.1-1.5); ALKALINE PHOSPHATASE 91 IU/L (46-116); ANION GAP 8 (8-16); ASPARTATE AMINO TRANSFERASE 15 U/L (10-37); BILIRUBIN,TOTAL 0.6 MG/DL (0.1-1.0); BLOOD UREA NITROGEN 17 MG/DL (7-18); CALCIUM 9.2 MG/DL (8.5-10.1); CHLORIDE 107 MMOL/L (99-107); CREATININE 1.13 MG/DL (0.60-1.10); GLUCOSE 111 MG/DL (70-104); POTASSIUM 4.3 MMOL/L (3.5-5.1); SODIUM 142 MMOL/L (135-145); TOTAL CARBON DIOXIDE 26.7 MMOL/L (24-32); TOTAL PROTEIN 6.4 G/DL (6.4-8.2); eGFR 62 ML/MIN
[2021-12-20] MEDS ORDERED: FURO40TA4 PO (18:32)
[2021-12-20] MEDS ORDERED: SPIR50TA5 PO (18:32)
[2021-12-20 19:00] VITALS: BP 113/85
== END 2021-12-20 19:45 | disposition home or self-care (01) ==
LOC: ER 14:17
DX: R07.89 Other chest pain (principal); R06.02 Shortness of breath; I48.91 Unspecified atrial fibrillation; I25.10 Atherosclerotic heart disease of native coronary artery without angina pectoris; E78.00 Pure hypercholesterolemia, unspecified; I10 Essential (primary) hypertension; K21.9 Gastro-esophageal reflux disease without esophagitis; E11.9 Type 2 diabetes mellitus without complications; Z86.73 Personal history of transient ischemic attack (TIA), and cerebral infarction without residual deficits; Z87.442 Personal history of urinary calculi; Z95.0 Presence of cardiac pacemaker; Z98.890 Other specified postprocedural states; Z88.6 Allergy status to analgesic agent; Z88.8 Allergy status to other drugs, medicaments and biological substances; Z79.899 Other long term (current) drug therapy
CPT/HCPCS: 36415; 71045; 80053; 83880; 84484; 85025; 93005; 99285

== ENCOUNTER 2022-07-20 11:39 | Emergency (ER) | payer MEDICARE ==
[~2022-07-20] VITALS: Ht 177.8 cm; Wt 115.0 kg
[~2022-07-20 11:39] MED LIST changes: +SPIR50TA5 PO
[2022-07-20 12:23] LABS: BASOPHILS % (AUTO) 0.7 % (0-1); EOSINOPHILS # (AUTO) 0.2 X10'3 (0-0.9); EOSINOPHILS % (AUTO) 2.7 % (0-6); HEMATOCRIT 38.9 % (42.0-52.0); HEMOGLOBIN 13.1 g/dl (14.0-17.9); LYMPHOCYTES # (AUTO) 0.7 X10'3 (1.1-4.8); LYMPHOCYTES % (AUTO) 10.8 % (21-51); MEAN CORPUSCULAR HEMOGLOBIN 33.1 PG (27.0-31.0); MEAN CORPUSCULAR HGB CONC 33.6 g/dL (33.0-36.5); MEAN CORPUSCULAR VOLUME 98.7 FL (78-98); MEAN PLATELET VOLUME 7.1 FL (7.4-10.4); MONOCYTES # (AUTO) 0.4 X10'3 (0-0.9); MONOCYTES % (AUTO) 6.8 % (2-12); NEUTROPHILS # (AUTO) 5.2 X10'3 (1.8-7.7); PLATELET COUNT 220 X10'3 (140-440); RED BLOOD COUNT 3.94 X10'6 (4.70-6.10); RED CELL DISTRIBUTION WIDTH 13.9 % (11.5-14.5); WHITE BLOOD COUNT 6.6 X10'3 (4.5-11.0)
[2022-07-20 12:27] VITALS: BP 135/71
[2022-07-20 12:39] LABS: ALANINE AMINOTRANSFERASE 20 U/L (12-78); ALBUMIN 3.8 G/DL (3.4-5.0); ALBUMIN/GLOBULIN RATIO 1.3 (1.1-1.5); ALKALINE PHOSPHATASE 91 IU/L (46-116); ANION GAP 3 (8-16); ASPARTATE AMINO TRANSFERASE 15 U/L (10-37); BILIRUBIN,TOTAL 0.9 MG/DL (0.1-1.0); BLOOD UREA NITROGEN 13 MG/DL (7-18); CALCIUM 9.2 MG/DL (8.5-10.1); CHLORIDE 106 MMOL/L (99-107); CREATININE 1.18 MG/DL (0.60-1.10); GLUCOSE 159 MG/DL (70-104); POTASSIUM 3.9 MMOL/L (3.5-5.1); SODIUM 140 MMOL/L (135-145); TOTAL CARBON DIOXIDE 30.8 MMOL/L (24-32); TOTAL PROTEIN 6.7 G/DL (6.4-8.2); eGFR 59 ML/MIN
== END 2022-07-20 15:00 | disposition home or self-care (01) ==
LOC: ER 11:40
DX: R42 Dizziness and giddiness (principal); R07.89 Other chest pain; R06.02 Shortness of breath; I48.91 Unspecified atrial fibrillation; I25.10 Atherosclerotic heart disease of native coronary artery without angina pectoris; E78.00 Pure hypercholesterolemia, unspecified; I10 Essential (primary) hypertension; E11.9 Type 2 diabetes mellitus without complications; Z87.442 Personal history of urinary calculi; Z95.5 Presence of coronary angioplasty implant and graft; Z95.0 Presence of cardiac pacemaker; Z88.8 Allergy status to other drugs, medicaments and biological substances; Z79.899 Other long term (current) drug therapy
CPT/HCPCS: 36415; 71045; 80053; 83880; 84484; 85025; 93005; 99285

== ENCOUNTER 2022-09-01 11:08 | Inpatient (IN) | payer MEDICARE ==
[~2022-09-01] VITALS: Ht 179.1 cm; Wt 108.2 kg
[~2022-09-01 11:08] MED LIST changes: +ASPI-611 PO; -CARV-50 PO; -SPIR25TA5 PO
[2022-09-01 12:17] LABS: BASOPHILS % (AUTO) 0.8 % (0-1); EOSINOPHILS # (AUTO) 0.3 X10'3 (0-0.9); EOSINOPHILS % (AUTO) 5.7 % (0-6); HEMATOCRIT 32.4 % (42.0-52.0); HEMOGLOBIN 11.2 g/dl (14.0-17.9); LYMPHOCYTES # (AUTO) 0.9 X10'3 (1.1-4.8); LYMPHOCYTES % (AUTO) 15.6 % (21-51); MEAN CORPUSCULAR HEMOGLOBIN 33.8 PG (27.0-31.0); MEAN CORPUSCULAR HGB CONC 34.6 g/dL (33.0-36.5); MEAN CORPUSCULAR VOLUME 97.8 FL (78-98); MEAN PLATELET VOLUME 7.3 FL (7.4-10.4); MONOCYTES # (AUTO) 0.6 X10'3 (0-0.9); MONOCYTES % (AUTO) 11.6 % (2-12); NEUTROPHILS # (AUTO) 3.7 X10'3 (1.8-7.7); NEUTROPHILS % (AUTO) 66.3 % (42-75); PLATELET COUNT 197 X10'3 (140-440); RED BLOOD COUNT 3.31 X10'6 (4.70-6.10); RED CELL DISTRIBUTION WIDTH 13.4 % (11.5-14.5); WHITE BLOOD COUNT 5.5 X10'3 (4.5-11.0)
[2022-09-01 12:22] LABS: ALANINE AMINOTRANSFERASE 19 U/L (12-78); ALBUMIN 3.2 G/DL (3.4-5.0); ALBUMIN/GLOBULIN RATIO 1.2 (1.1-1.5); ALKALINE PHOSPHATASE 78 IU/L (46-116); ANION GAP 6 (8-16); ASPARTATE AMINO TRANSFERASE 23 U/L (10-37); BILIRUBIN,TOTAL 0.9 MG/DL (0.1-1.0); BLOOD UREA NITROGEN 35 MG/DL (7-18); CALCIUM 8.6 MG/DL (8.5-10.1); CHLORIDE 102 MMOL/L (99-107); CREATININE 2.91 MG/DL (0.60-1.10); GLUCOSE 155 MG/DL (70-104); POTASSIUM 3.8 MMOL/L (3.5-5.1); SODIUM 142 MMOL/L (135-145); TOTAL CARBON DIOXIDE 34.1 MMOL/L (24-32); TOTAL PROTEIN 5.8 G/DL (6.4-8.2); eGFR 21 ML/MIN
[2022-09-01] MEDS ORDERED: aspirin 81mg tab.chew PO ONE (12:45)
--- NOTE | 2022-09-01 12:45 | NUR ---
Spoke with , Cyn, over the phone and gave her update on patient status. stating she would like to come in to visit pt soon and bring his cell phone to him.
[2022-09-01] MEDS ORDERED: magnesium 2GM in 50ml NS 50 ML IV PRN (14:05)
[2022-09-01] MEDS ORDERED: potassium Cl 20 mEq SR tablet PO PRN ×2 (14:05)
[2022-09-01] MEDS ORDERED: acetaminophen 325mg tablet PO PRN (14:05)
[2022-09-01] MEDS ORDERED: magnesium Cl slow-release 64mg tablet PO PRN (14:05)
[2022-09-01] MEDS ORDERED: magnesium 4gm in 100ml NS 100 ML IV PRN (14:05)
[2022-09-01] MEDS ORDERED: potassium Cl 40MEQ/1/2NS 520ml 520 ML IV PRN (14:05)
[2022-09-01] MEDS ORDERED: HYDR-3973 PO (14:13)
[2022-09-01 14:22] LABS: MAGNESIUM 1.9 MG/DL (1.5-2.4)
--- NOTE | 2022-09-01 16:07 | NUR ---
Patient in room . I have received report from Agatha SAVAGE and had the opportunity to ask questions and assume patient care.
--- NOTE | 2022-09-01 16:20 | NUR ---
Patient arrived to unit via wheel chair accompanied by Agatha SAVAGE. and grandson at bedside.
--- NOTE | 2022-09-01 16:30 | NUR ---
REPORT CALLED TO HUSSEIN REY UPSTAIRS IN PCU. TRANSFERRED PT TO FLOOR VIA WHEELCHAIR WITH FAMILY ATTENDING. PT HAD ALL BELONGINGS.
[2022-09-01 16:37] VITALS: BP 104/61
[2022-09-01 18:00] VITALS: BP 128/58
--- NOTE | 2022-09-01 18:16 | NUR ---
Problems reprioritized. Patient report given, questions answered & plan of care reviewed with Jenna YARD BRAKEMAN.
--- NOTE | 2022-09-01 18:25 | NUR ---
Page sent to at [id number], Lulu Fernando, please reconcile home meds from admit today. Thank isabel Lewis LVN @[phone].
[2022-09-01] MEDS: K and/or MAG REPLACEMENT MC SCH (20:00)
[2022-09-01] MEDS ORDERED: loratadine 10mg tablet PO PRN (20:40)
[2022-09-01] MEDS ORDERED: non-formulary drug (Acetaminophen (Tylenol Extra Strength) 1 TAB) PO PRN (20:40)
[2022-09-01] MEDS ORDERED: HYDROcodone/acetaminophen 10/325mg tab PO PRN (20:40)
[2022-09-01] MEDS ORDERED: nitroGLYCERIN 0.4mg SUBLingual tab SL PRN (20:40)
[2022-09-01] MEDS: apixaban 5mg tablet PO SCH (20:58)
[2022-09-01] MEDS: latanoprost 0.005% 2.5ml ophthalmic drops EACHEYE SCH (21:00)
[2022-09-01 22:00] VITALS: BP 158/64
[2022-09-02 02:00] VITALS: BP 136/61
[2022-09-02 05:38] LABS: BASOPHILS % (AUTO) 0.6 % (0-1); EOSINOPHILS # (AUTO) 0.3 X10'3 (0-0.9); EOSINOPHILS % (AUTO) 5.4 % (0-6); HEMATOCRIT 33.8 % (42.0-52.0); HEMOGLOBIN 11.5 g/dl (14.0-17.9); LYMPHOCYTES # (AUTO) 1.1 X10'3 (1.1-4.8); LYMPHOCYTES % (AUTO) 16.8 % (21-51); MEAN CORPUSCULAR HEMOGLOBIN 33.4 PG (27.0-31.0); MEAN CORPUSCULAR HGB CONC 34.1 g/dL (33.0-36.5); MEAN CORPUSCULAR VOLUME 97.8 FL (78-98); MEAN PLATELET VOLUME 7.7 FL (7.4-10.4); MONOCYTES # (AUTO) 0.7 X10'3 (0-0.9); MONOCYTES % (AUTO) 11.1 % (2-12); NEUTROPHILS # (AUTO) 4.2 X10'3 (1.8-7.7); NEUTROPHILS % (AUTO) 66.1 % (42-75); PLATELET COUNT 202 X10'3 (140-440); RED BLOOD COUNT 3.45 X10'6 (4.70-6.10); RED CELL DISTRIBUTION WIDTH 13.5 % (11.5-14.5); WHITE BLOOD COUNT 6.3 X10'3 (4.5-11.0)
[2022-09-02 05:48] LABS: ALBUMIN 3.4 G/DL (3.4-5.0); ANION GAP 9 (8-16); BLOOD UREA NITROGEN 36 MG/DL (7-18); BUN/CREATININE RATIO 11.4 (10.0-20.0); CALCIUM 8.7 MG/DL (8.5-10.1); CHLORIDE 101 MMOL/L (99-107); CREATININE 3.17 MG/DL (0.60-1.10); GLUCOSE 123 MG/DL (70-104); MAGNESIUM 1.8 MG/DL (1.5-2.4); POTASSIUM 3.5 MMOL/L (3.5-5.1); SODIUM 140 MMOL/L (135-145); TOTAL CARBON DIOXIDE 30.1 MMOL/L (24-32); eGFR 19 ML/MIN
--- NOTE | 2022-09-02 06:30 | NUR ---
Patient in room PCU 3023. I have received report from Jenna SON and had the opportunity to ask questions and assume patient care.
[2022-09-02 07:00] VITALS: BP 113/91
[2022-09-02] MEDS ORDERED: allopurinol 100mg tablet PO SCH (08:00)
[2022-09-02] MEDS: K and/or MAG REPLACEMENT MC SCH ×2 (08:00→20:10)
[2022-09-02] MEDS: spironolactone 50 MG tablet PO SCH (08:30)
[2022-09-02] MEDS: atorvastatin 20mg tablet PO SCH (08:30)
[2022-09-02] MEDS: aspirin 81mg, enteric-coated 1 TAB TABLET.DR PO SCH (08:30)
[2022-09-02] MEDS: apixaban 5mg tablet PO SCH ×2 (08:30→20:17)
[2022-09-02] MEDS: isosorbide mononitrate 30mg tab.SR.24H PO SCH (08:30)
[2022-09-02] MEDS: clopidogrel 75mg tablet PO SCH (08:31)
[2022-09-02] MEDS: citalopram 20mg tablet PO SCH (08:31)
[2022-09-02] MEDS: ferrous sulfate 325mg tablet PO SCH (08:31)
[2022-09-02] MEDS: acetylcysteine 200 MG/ml 4ml vial PO SCH ×2 (09:43→20:17)
[2022-09-02] MEDS: normal saline 1000ml 1,000 ML IV SCH ×2 (09:47→20:21)
[2022-09-02 11:00] VITALS: BP 127/68
[2022-09-02] MEDS: ondansetron/PF 4mg/2ml inj IV PRN (11:29)
[2022-09-02] MEDS ORDERED: DONE10TA44 PO (15:52)
--- NOTE | 2022-09-02 15:57 | NUR ---
Message: [phone] Abdullahi Patient takes Aricept at home 10 mg HS. It isn't ordered here. Do you want to add it? Please advise. Thank you Maite SON [phone] Custom Responses: promotional table spacer Transaction number: [id number]
[2022-09-02 18:00] VITALS: BP 152/74
--- NOTE | 2022-09-02 18:18 | NUR ---
Problems reprioritized. Patient report given, questions answered & plan of care reviewed with Prudence RN.
--- NOTE | 2022-09-02 18:22 | NUR ---
Patient in room PCU 3023. I have received report from CANDIDO SON and had the opportunity to ask questions and assume patient care.
[2022-09-02] MEDS: latanoprost 0.005% 2.5ml ophthalmic drops EACHEYE SCH (20:17)
[2022-09-02 22:00] VITALS: BP 142/70
[2022-09-03 02:00] VITALS: BP 124/54
[2022-09-03] MEDS: normal saline 1000ml 1,000 ML IV SCH ×2 (05:55→15:05)
[2022-09-03 06:20] LABS: BASOPHILS % (AUTO) 0.9 % (0-1); EOSINOPHILS # (AUTO) 0.2 X10'3 (0-0.9); EOSINOPHILS % (AUTO) 4.5 % (0-6); HEMATOCRIT 31.8 % (42.0-52.0); HEMOGLOBIN 10.9 g/dl (14.0-17.9); LYMPHOCYTES % (AUTO) 20.9 % (21-51); MEAN CORPUSCULAR HEMOGLOBIN 33.4 PG (27.0-31.0); MEAN CORPUSCULAR HGB CONC 34.2 g/dL (33.0-36.5); MEAN CORPUSCULAR VOLUME 97.9 FL (78-98); MEAN PLATELET VOLUME 7.4 FL (7.4-10.4); MONOCYTES # (AUTO) 0.5 X10'3 (0-0.9); MONOCYTES % (AUTO) 10.7 % (2-12); NEUTROPHILS # (AUTO) 3.2 X10'3 (1.8-7.7); PLATELET COUNT 181 X10'3 (140-440); RED BLOOD COUNT 3.25 X10'6 (4.70-6.10); RED CELL DISTRIBUTION WIDTH 13.3 % (11.5-14.5)
--- NOTE | 2022-09-03 06:20 | NUR ---
Patient in room PCU 3023. I have received report from Beata SAVAGE and had the opportunity to ask questions and assume patient care.
--- NOTE | 2022-09-03 06:28 | NUR ---
Problems reprioritized. Patient report given, questions answered & plan of care reviewed with CANDIDO SON.
[2022-09-03 06:33] LABS: ALBUMIN 2.9 G/DL (3.4-5.0); ANION GAP 10 (8-16); BLOOD UREA NITROGEN 37 MG/DL (7-18); BUN/CREATININE RATIO 11.7 (10.0-20.0); CALCIUM 8.3 MG/DL (8.5-10.1); CHLORIDE 104 MMOL/L (99-107); CREATININE 3.16 MG/DL (0.60-1.10); GLUCOSE 116 MG/DL (70-104); MAGNESIUM 1.8 MG/DL (1.5-2.4); POTASSIUM 3.8 MMOL/L (3.5-5.1); SODIUM 142 MMOL/L (135-145); TOTAL CARBON DIOXIDE 28.4 MMOL/L (24-32); eGFR 19 ML/MIN
[2022-09-03 07:00] VITALS: BP 148/62
[2022-09-03] MEDS: K and/or MAG REPLACEMENT MC SCH ×2 (08:00→20:00)
[2022-09-03] MEDS: apixaban 5mg tablet PO SCH ×2 (08:48→20:50)
[2022-09-03] MEDS: ferrous sulfate 325mg tablet PO SCH (08:48)
[2022-09-03] MEDS: clopidogrel 75mg tablet PO SCH (08:48)
[2022-09-03] MEDS: citalopram 20mg tablet PO SCH (08:48)
[2022-09-03] MEDS: atorvastatin 20mg tablet PO SCH (08:48)
[2022-09-03] MEDS: isosorbide mononitrate 30mg tab.SR.24H PO SCH (08:48)
[2022-09-03] MEDS: spironolactone 50 MG tablet PO SCH (08:48)
[2022-09-03] MEDS: acetylcysteine 200 MG/ml 4ml vial PO SCH ×2 (08:49→20:52)
[2022-09-03] MEDS: aspirin 81mg, enteric-coated 1 TAB TABLET.DR PO SCH (08:49)
[2022-09-03 11:00] VITALS: BP 131/66
[2022-09-03 11:26] LABS: CLARITY,URINE CLEAR (Clear); COLOR,URINE YELLOW (Yellow); GLUCOSE, URINE NEGATIVE (Neg); KETONES,URINE NEGATIVE (Neg); LEUKOCYTE ESTERASE ,URINE NEGATIVE (Neg); NITRITES, URINE NEGATIVE (Neg); OCCULT BLOOD,URINE MODERATE (Neg); PROTEIN,URINE NEGATIVE (Neg)
[2022-09-03 11:29] LABS: UA COLLECTION TYPE CLN CATCH MIDSTREAM
[2022-09-03 11:40] LABS: SQUAMOUS EPITHELIAL CELL,UR FEW /LPF (FEW)
[2022-09-03 11:41] LABS: WBC,URINE 0-4 /HPF (0-4)
[2022-09-03 11:42] LABS: BACTERIA,URINE FEW /HPF (Neg); TRANSITIONAL EPI CELLS,URINE FEW /HPF
[2022-09-03 11:43] LABS: COARSE GRANULAR CAST 0-3 /LPF (NEGATIVE); HYALINE CASTS 0-3 /LPF (NEGATIVE)
[2022-09-03 15:00] VITALS: BP 141/71
--- NOTE | 2022-09-03 17:36 | NUR ---
AGREE WITH MINE DEPUTY AM ASSESSMENT
--- NOTE | 2022-09-03 17:52 | NUR ---
Patient's IV infiltrated removed IV. Attempted X2 unable to get IV will notify hourly shift manager.
[2022-09-03 18:00] VITALS: BP 161/74
--- NOTE | 2022-09-03 18:34 | NUR ---
Problems reprioritized. Patient report given, questions answered & plan of care reviewed with April RN.
--- NOTE | 2022-09-03 18:40 | NUR ---
Patient in room PCU 3023. I have received report from CANDIDO SAVAGE and had the opportunity to ask questions and assume patient care.
[2022-09-03] MEDS: latanoprost 0.005% 2.5ml ophthalmic drops EACHEYE SCH (20:57)
[2022-09-03 22:00] VITALS: BP 159/82
[2022-09-04 02:00] VITALS: BP 156/79
[2022-09-04] MEDS: normal saline 1000ml 1,000 ML IV SCH ×3 (06:08→21:05)
[2022-09-04 06:19] LABS: MEAN PLATELET VOLUME 7.2 FL (7.4-10.4); PLATELET COUNT 164 X10'3 (140-440); RED CELL DISTRIBUTION WIDTH 13.4 % (11.5-14.5)
[2022-09-04 06:23] LABS: BASOPHILS % (AUTO) 0.9 % (0-1); EOSINOPHILS # (AUTO) 0.3 X10'3 (0-0.9); HEMATOCRIT 30.7 % (42.0-52.0); HEMOGLOBIN 10.3 g/dl (14.0-17.9); LYMPHOCYTES # (AUTO) 0.9 X10'3 (1.1-4.8); LYMPHOCYTES % (AUTO) 17.3 % (21-51); MEAN CORPUSCULAR HEMOGLOBIN 33.1 PG (27.0-31.0); MEAN CORPUSCULAR HGB CONC 33.5 g/dL (33.0-36.5); MEAN CORPUSCULAR VOLUME 98.8 FL (78-98); MONOCYTES # (AUTO) 0.6 X10'3 (0-0.9); MONOCYTES % (AUTO) 11.4 % (2-12); NEUTROPHILS # (AUTO) 3.3 X10'3 (1.8-7.7); NEUTROPHILS % (AUTO) 65.4 % (42-75); RED BLOOD COUNT 3.11 X10'6 (4.70-6.10); WHITE BLOOD COUNT 5.1 X10'3 (4.5-11.0)
[2022-09-04 06:26] LABS: ALBUMIN 2.8 G/DL (3.4-5.0); ANION GAP 5 (8-16); BLOOD UREA NITROGEN 33 MG/DL (7-18); BUN/CREATININE RATIO 12.3 (10.0-20.0); CALCIUM 8.4 MG/DL (8.5-10.1); CHLORIDE 108 MMOL/L (99-107); CREATININE 2.68 MG/DL (0.60-1.10); GLUCOSE 121 MG/DL (70-104); MAGNESIUM 1.7 MG/DL (1.5-2.4); POTASSIUM 3.9 MMOL/L (3.5-5.1); SODIUM 141 MMOL/L (135-145); TOTAL CARBON DIOXIDE 28.4 MMOL/L (24-32); eGFR 23 ML/MIN
--- NOTE | 2022-09-04 06:26 | NUR ---
Problems reprioritized. Patient report given, questions answered & plan of care reviewed with RHONDA SON.
[2022-09-04] MEDS: K and/or MAG REPLACEMENT MC SCH ×2 (08:00→20:00)
[2022-09-04] MEDS: atorvastatin 20mg tablet PO SCH (08:52)
[2022-09-04] MEDS: apixaban 5mg tablet PO SCH ×2 (08:52→21:28)
[2022-09-04] MEDS: allopurinol 100mg tablet PO SCH (08:52)
[2022-09-04] MEDS: aspirin 81mg, enteric-coated 1 TAB TABLET.DR PO SCH (08:52)
[2022-09-04] MEDS: isosorbide mononitrate 30mg tab.SR.24H PO SCH (08:52)
[2022-09-04] MEDS: spironolactone 50 MG tablet PO SCH (08:52)
[2022-09-04] MEDS: ferrous sulfate 325mg tablet PO SCH (08:52)
[2022-09-04] MEDS: carVEDilol 3.125mg tablet PO SCH ×2 (08:53→21:29)
[2022-09-04] MEDS: citalopram 20mg tablet PO SCH (08:53)
[2022-09-04] MEDS: clopidogrel 75mg tablet PO SCH (08:53)
[2022-09-04] MEDS: acetylcysteine 200 MG/ml 4ml vial PO SCH ×2 (08:53→21:28)
[2022-09-04 16:33] VITALS: BP 141/70
[2022-09-04 18:00] VITALS: BP 115/64
--- NOTE | 2022-09-04 18:40 | NUR ---
Patient in room PCU 3023. I have received report from RHONDA SAVAGE and had the opportunity to ask questions and assume patient care.
[2022-09-04 22:00] VITALS: BP 142/77
[2022-09-04] MEDS: latanoprost 0.005% 2.5ml ophthalmic drops EACHEYE SCH (22:46)
[2022-09-05 02:00] VITALS: BP 113/53
[2022-09-05] MEDS: normal saline 1000ml 1,000 ML IV SCH (03:33)
[2022-09-05 06:24] LABS: A/G RATIO 1.2 (0.7-1.7); ALBUMIN 2.8 g/dL (2.9-4.4); BETA GLOBULIN 0.9 g/dL (0.7-1.3); GAMMA GLOBULIN 0.5 g/dL (0.4-1.8); GLOBULIN, TOTAL 2.4 g/dL (2.2-3.9); M-SPIKE Not Observed g/dL (Not Observed); PROTEIN, TOTAL, SERUM 5.2 g/dL (6.0-8.5)
--- NOTE | 2022-09-05 06:32 | NUR ---
Problems reprioritized. Patient report given, questions answered & plan of care reviewed with CHELITA SAVAGE.
[2022-09-05 06:42] LABS: BASOPHILS % (AUTO) 0.5 % (0-1); EOSINOPHILS # (AUTO) 0.2 X10'3 (0-0.9); EOSINOPHILS % (AUTO) 3.7 % (0-6); HEMOGLOBIN 10.3 g/dl (14.0-17.9); LYMPHOCYTES # (AUTO) 0.9 X10'3 (1.1-4.8); LYMPHOCYTES % (AUTO) 15.4 % (21-51); MEAN CORPUSCULAR HEMOGLOBIN 32.6 PG (27.0-31.0); MEAN CORPUSCULAR HGB CONC 33.2 g/dL (33.0-36.5); MEAN CORPUSCULAR VOLUME 98.2 FL (78-98); MEAN PLATELET VOLUME 7.5 FL (7.4-10.4); MONOCYTES # (AUTO) 0.6 X10'3 (0-0.9); MONOCYTES % (AUTO) 9.9 % (2-12); NEUTROPHILS # (AUTO) 4.3 X10'3 (1.8-7.7); NEUTROPHILS % (AUTO) 70.5 % (42-75); PLATELET COUNT 174 X10'3 (140-440); RED BLOOD COUNT 3.15 X10'6 (4.70-6.10); RED CELL DISTRIBUTION WIDTH 13.5 % (11.5-14.5)
[2022-09-05 06:47] LABS: ANION GAP 7 (8-16); BLOOD UREA NITROGEN 27 MG/DL (7-18); BUN/CREATININE RATIO 13.2 (10.0-20.0); CALCIUM 8.5 MG/DL (8.5-10.1); CHLORIDE 109 MMOL/L (99-107); CREATININE 2.04 MG/DL (0.60-1.10); GLUCOSE 122 MG/DL (70-104); MAGNESIUM 1.7 MG/DL (1.5-2.4); POTASSIUM 4.1 MMOL/L (3.5-5.1); SODIUM 142 MMOL/L (135-145); TOTAL CARBON DIOXIDE 25.6 MMOL/L (24-32); eGFR 31 ML/MIN
[2022-09-05 08:00] VITALS: BP 152/74
[2022-09-05] MEDS: K and/or MAG REPLACEMENT MC SCH ×2 (08:00→20:02)
[2022-09-05] MEDS: spironolactone 50 MG tablet PO SCH (08:35)
[2022-09-05] MEDS: atorvastatin 20mg tablet PO SCH (08:35)
[2022-09-05] MEDS: ferrous sulfate 325mg tablet PO SCH (08:35)
[2022-09-05] MEDS: carVEDilol 3.125mg tablet PO SCH ×2 (08:35→21:14)
[2022-09-05] MEDS: aspirin 81mg, enteric-coated 1 TAB TABLET.DR PO SCH (08:36)
[2022-09-05] MEDS: citalopram 20mg tablet PO SCH (08:36)
[2022-09-05] MEDS: clopidogrel 75mg tablet PO SCH (08:36)
[2022-09-05] MEDS: isosorbide mononitrate 30mg tab.SR.24H PO SCH (08:36)
[2022-09-05] MEDS: apixaban 5mg tablet PO SCH ×2 (08:36→21:13)
[2022-09-05] MEDS: acetylcysteine 200 MG/ml 4ml vial PO SCH (08:41)
[2022-09-05] MEDS ORDERED: furosemide 40mg/4ml inj IV ONE (10:10)
[2022-09-05 11:49] LABS: ALBUMIN, UR Note: % (.); PROTEIN,TOTAL,URINE 12.7 mg/dL (Not Estab.)
[2022-09-05 18:00] VITALS: BP 146/74
--- NOTE | 2022-09-05 18:20 | NUR ---
Patient in room PCU 3023. I have received report from Rod SAVAGE and had the opportunity to ask questions and assume patient care.
[2022-09-05] MEDS: furosemide 40mg/4ml inj IV SCH ×2 (20:04→20:05)
--- NOTE | 2022-09-05 20:07 | NUR ---
refugio refused by patient said I am peeing constantly I don't want it. Could not convince him he needed it.
--- NOTE | 2022-09-05 21:00 | NUR ---
MIRROR SILVERER documentation: I have reviewed and agree with all interventions, assessments performed and documented by Nilsa Zuniga LVN.
[2022-09-05] MEDS: latanoprost 0.005% 2.5ml ophthalmic drops EACHEYE SCH (21:27)
--- NOTE | 2022-09-05 21:51 | NUR ---
PT CHANGED HIS MIND AND TOOK THE LASIX
[2022-09-05 22:00] VITALS: BP 170/83
--- NOTE | 2022-09-06 01:08 | NUR ---
Page Sent PAGER ID: [phone] MESSAGE: [phone] Mukul Fernando: BP 170/60 Map 96, HR 63. Pt says he "just doesnt feel good" but no other symptoms. Brit ext [phone]
[2022-09-06] MEDS ORDERED: hydrALAZINE 20mg/ml inj. IV PRN (01:15)
[2022-09-06 02:00] VITALS: BP 166/73
[2022-09-06] MEDS: ondansetron/PF 4mg/2ml inj IV PRN (02:33)
--- NOTE | 2022-09-06 06:19 | NUR ---
Problems reprioritized. Patient report given, questions answered & plan of care reviewed with Rod SAVAGE.
[2022-09-06 07:00] VITALS: BP 131/60
[2022-09-06 07:41] LABS: BASOPHILS # (AUTO) 0.1 X10'3 (0-0.2); BASOPHILS % (AUTO) 0.9 % (0-1); EOSINOPHILS # (AUTO) 0.3 X10'3 (0-0.9); EOSINOPHILS % (AUTO) 4.4 % (0-6); HEMATOCRIT 32.2 % (42.0-52.0); LYMPHOCYTES # (AUTO) 0.9 X10'3 (1.1-4.8); MEAN CORPUSCULAR HEMOGLOBIN 33.3 PG (27.0-31.0); MEAN CORPUSCULAR VOLUME 97.9 FL (78-98); MEAN PLATELET VOLUME 7.6 FL (7.4-10.4); MONOCYTES # (AUTO) 0.5 X10'3 (0-0.9); MONOCYTES % (AUTO) 9.4 % (2-12); NEUTROPHILS % (AUTO) 69.3 % (42-75); PLATELET COUNT 192 X10'3 (140-440); RED BLOOD COUNT 3.29 X10'6 (4.70-6.10); RED CELL DISTRIBUTION WIDTH 13.3 % (11.5-14.5); WHITE BLOOD COUNT 5.8 X10'3 (4.5-11.0)
[2022-09-06] MEDS: furosemide 40mg/4ml inj IV SCH (08:00)
[2022-09-06] MEDS: K and/or MAG REPLACEMENT MC SCH (08:00)
[2022-09-06 08:05] LABS: ALBUMIN 3.3 G/DL (3.4-5.0); ANION GAP 12 (8-16); BLOOD UREA NITROGEN 22 MG/DL (7-18); BUN/CREATININE RATIO 12.9 (10.0-20.0); CALCIUM 8.8 MG/DL (8.5-10.1); CHLORIDE 105 MMOL/L (99-107); CREATININE 1.71 MG/DL (0.60-1.10); GLUCOSE 110 MG/DL (70-104); POTASSIUM 3.7 MMOL/L (3.5-5.1); SODIUM 143 MMOL/L (135-145); TOTAL CARBON DIOXIDE 25.9 MMOL/L (24-32); eGFR 38 ML/MIN
[2022-09-06] MEDS: aspirin 81mg, enteric-coated 1 TAB TABLET.DR PO SCH (09:33)
[2022-09-06] MEDS: atorvastatin 20mg tablet PO SCH (09:33)
[2022-09-06] MEDS: allopurinol 100mg tablet PO SCH (09:34)
[2022-09-06] MEDS: clopidogrel 75mg tablet PO SCH (09:34)
[2022-09-06] MEDS: ferrous sulfate 325mg tablet PO SCH (09:34)
[2022-09-06] MEDS: spironolactone 50 MG tablet PO SCH (09:34)
[2022-09-06] MEDS: isosorbide mononitrate 30mg tab.SR.24H PO SCH (09:34)
[2022-09-06] MEDS: apixaban 5mg tablet PO SCH (09:34)
[2022-09-06] MEDS: carVEDilol 3.125mg tablet PO SCH (09:34)
[2022-09-06] MEDS: citalopram 20mg tablet PO SCH (09:34)
== END 2022-09-06 11:20 | DRG 302 ==
LOC: ER 11:09 → PCU 3S 14:08 → UNDOADMIN 14:18 → PCU 3S 14:18
PROVIDERS: ADMIT Internal Medicine; ATTEND Internal Medicine
DX: I25.110 Atherosclerotic heart disease of native coronary artery with unstable angina pectoris (principal); I50.33 Acute on chronic diastolic (congestive) heart failure; I13.0 Hypertensive heart and chronic kidney disease with heart failure and stage 1 through stage 4 chronic kidney disease, or unspecified chronic kidney disease; N17.9 Acute kidney failure, unspecified; I48.19 Other persistent atrial fibrillation; N14.11 Contrast-induced nephropathy; E11.22 Type 2 diabetes mellitus with diabetic chronic kidney disease; E78.00 Pure hypercholesterolemia, unspecified; G47.33 Obstructive sleep apnea (adult) (pediatric); F32.A Depression, unspecified; K21.9 Gastro-esophageal reflux disease without esophagitis; M10.9 Gout, unspecified; M25.551 Pain in right hip; N18.30 Chronic kidney disease, stage 3 unspecified; R31.29 Other microscopic hematuria; D63.8 Anemia in other chronic diseases classified elsewhere; T50.8X5A Adverse effect of diagnostic agents, initial encounter; I25.2 Old myocardial infarction; Z79.01 Long term (current) use of anticoagulants; Z79.02 Long term (current) use of antithrombotics/antiplatelets; Z79.84 Long term (current) use of oral hypoglycemic drugs; Z79.899 Other long term (current) drug therapy; Z82.49 Family history of ischemic heart disease and other diseases of the circulatory system; Z85.46 Personal history of malignant neoplasm of prostate; Z86.73 Personal history of transient ischemic attack (TIA), and cerebral infarction without residual deficits; Z87.442 Personal history of urinary calculi; Z87.891 Personal history of nicotine dependence; Z95.0 Presence of cardiac pacemaker; Z95.1 Presence of aortocoronary bypass graft; Z95.2 Presence of prosthetic heart valve; Z95.5 Presence of coronary angioplasty implant and graft; Z88.8 Allergy status to other drugs, medicaments and biological substances; Z79.82 Long term (current) use of aspirin
CPT/HCPCS: 36415; 71045; 72170; 76770; 80048; 80053; 81001; 82043; 82570; 82948; 83735; 83880; 84155; 84156; 84165; 84166; 84300; 84484; 85025; 87081; 93005; 97116; 97161; 97530; 97535; 99285; A4349; A4615; A4620; A4649; G0378; J0360; J1940; J2405; J3490; J7030

== ENCOUNTER 2022-12-12 00:15 | Emergency (ER) | payer MEDICARE ==
[~2022-12-12] VITALS: Ht 179.1 cm; Wt 110.5 kg
[~2022-12-12 00:15] MED LIST changes: -ASPI-611 PO; +DONE10TA44 PO
[2022-12-12 00:33] VITALS: BP 153/73; PULSE 63; RESP 20; TEMP 98; O2SAT 96
[2022-12-12 01:07] LABS: BASOPHILS % (AUTO) 0.9 % (0-1); EOSINOPHILS # (AUTO) 0.2 X10'3 (0-0.9); EOSINOPHILS % (AUTO) 4.5 % (0-6); HEMATOCRIT 36.7 % (42.0-52.0); HEMOGLOBIN 12.2 g/dl (14.0-17.9); LYMPHOCYTES % (AUTO) 21.7 % (21-51); MEAN CORPUSCULAR HEMOGLOBIN 33.8 PG (27.0-31.0); MEAN CORPUSCULAR HGB CONC 33.4 g/dL (33.0-36.5); MEAN CORPUSCULAR VOLUME 101.1 FL (78-98); MEAN PLATELET VOLUME 7.2 FL (7.4-10.4); MONOCYTES # (AUTO) 0.4 X10'3 (0-0.9); MONOCYTES % (AUTO) 9.7 % (2-12); NEUTROPHILS # (AUTO) 2.8 X10'3 (1.8-7.7); NEUTROPHILS % (AUTO) 63.2 % (42-75); PLATELET COUNT 232 X10'3 (140-440); RED BLOOD COUNT 3.63 X10'6 (4.70-6.10); RED CELL DISTRIBUTION WIDTH 14.6 % (11.5-14.5); WHITE BLOOD COUNT 4.4 X10'3 (4.5-11.0)
[2022-12-12 01:36] LABS: ALANINE AMINOTRANSFERASE 16 U/L (12-78); ALBUMIN 3.5 G/DL (3.4-5.0); ALBUMIN/GLOBULIN RATIO 1.1 (1.1-1.5); ALKALINE PHOSPHATASE 101 IU/L (46-116); ANION GAP 9 (8-16); ASPARTATE AMINO TRANSFERASE 13 U/L (10-37); BILIRUBIN,TOTAL 0.7 MG/DL (0.1-1.0); BLOOD UREA NITROGEN 16 MG/DL (7-18); BUN/CREATININE RATIO 12.2 (10.0-20.0); CALCIUM 9.5 MG/DL (8.5-10.1); CHLORIDE 105 MMOL/L (99-107); CREATININE 1.31 MG/DL (0.60-1.10); GLUCOSE 141 MG/DL (70-104); SODIUM 141 MMOL/L (135-145); TOTAL CARBON DIOXIDE 27.2 MMOL/L (24-32); TOTAL PROTEIN 6.7 G/DL (6.4-8.2); eCRCL 44 ML/MIN; eGFR 52 ML/MIN
[2022-12-12 01:43] LABS: PRO BRAIN NATRIURETIC PEPTIDE 535 PG/ML (0-450)
== END 2022-12-12 07:23 | disposition left against medical advice (07) ==
LOC: ER 00:16
DX: R07.9 Chest pain, unspecified (principal)
CPT/HCPCS: 36415; 71045; 80053; 83880; 84484; 85025; 93005

== ENCOUNTER 2023-05-18 18:43 | Inpatient (IN) | payer MEDICARE ==
[~2023-05-18] VITALS: Ht 177.8 cm; Wt 110.0 kg
[2023-05-18 19:57] LABS: BASOPHILS # (AUTO) 0.1 X10'3 (0-0.2); BASOPHILS % (AUTO) 1.5 % (0-1); EOSINOPHILS # (AUTO) 0.2 X10'3 (0-0.9); EOSINOPHILS % (AUTO) 4.8 % (0-6); HEMATOCRIT 33.5 % (42.0-52.0); HEMOGLOBIN 11.3 g/dl (14.0-17.9); LYMPHOCYTES # (AUTO) 0.8 X10'3 (1.1-4.8); LYMPHOCYTES % (AUTO) 16.6 % (21-51); MEAN CORPUSCULAR HEMOGLOBIN 33.7 PG (27.0-31.0); MEAN CORPUSCULAR HGB CONC 33.8 g/dL (33.0-36.5); MEAN CORPUSCULAR VOLUME 99.8 FL (78-98); MONOCYTES # (AUTO) 0.4 X10'3 (0-0.9); MONOCYTES % (AUTO) 9.3 % (2-12); NEUTROPHILS # (AUTO) 3.2 X10'3 (1.8-7.7); NEUTROPHILS % (AUTO) 67.8 % (42-75); PLATELET COUNT 216 X10'3 (140-440); RED BLOOD COUNT 3.36 X10'6 (4.70-6.10); RED CELL DISTRIBUTION WIDTH 14.5 % (11.5-14.5); WHITE BLOOD COUNT 4.7 X10'3 (4.5-11.0)
[2023-05-18 20:14] LABS: ALANINE AMINOTRANSFERASE 15 U/L (12-78); ALBUMIN/GLOBULIN RATIO 0.9 (1.1-1.5); ALKALINE PHOSPHATASE 95 IU/L (46-116); ANION GAP 8 (8-16); ASPARTATE AMINO TRANSFERASE 18 U/L (10-37); BILIRUBIN,TOTAL 1.1 MG/DL (0.1-1.0); BLOOD UREA NITROGEN 17 MG/DL (7-18); BUN/CREATININE RATIO 14.4 (10.0-20.0); CALCIUM 8.4 MG/DL (8.5-10.1); CHLORIDE 106 MMOL/L (99-107); CREATININE 1.18 MG/DL (0.60-1.10); GLUCOSE 115 MG/DL (70-104); POTASSIUM 4.3 MMOL/L (3.5-5.1); PRO BRAIN NATRIURETIC PEPTIDE 703 PG/ML (0-450); SODIUM 143 MMOL/L (135-145); TOTAL CARBON DIOXIDE 29.4 MMOL/L (24-32); TOTAL PROTEIN 6.2 G/DL (6.4-8.2); eCRCL 48 ML/MIN; eGFR 59 ML/MIN
[2023-05-18] MEDS: pantoprazole 40 MG vial IV ONE (20:57)
[2023-05-18] MEDS: furosemide 40mg/4ml inj IV ONE (20:57)
[2023-05-18] MEDS: nitroGLYCERIN 0.2mg/hour patch TD ONE (20:58)
[2023-05-18] MEDS: aspirin 81mg tab.chew PO ONE (20:58)
[2023-05-18] MEDS: ondansetron/PF 4mg/2ml inj IV ONE (20:58)
[2023-05-18] MEDS ORDERED: magnesium Cl slow-release 64mg tablet PO PRN (23:15)
[2023-05-18] MEDS ORDERED: magnesium 4gm in 100ml NS 100 ML IV PRN (23:15)
[2023-05-18] MEDS ORDERED: mag hydrox/Alum hydrox/simeth 30ml oral suspension PO PRN (23:15)
[2023-05-18] MEDS ORDERED: potassium Cl 40MEQ/1/2NS 520ml 520 ML IV PRN (23:15)
[2023-05-18] MEDS ORDERED: magnesium hydroxide 30ml (MOM) UD suspension PO PRN (23:15)
[2023-05-18] MEDS ORDERED: acetaminophen 325mg tablet PO PRN (23:15)
[2023-05-18] MEDS ORDERED: ondansetron/PF 4mg/2ml inj IV PRN (23:15)
[2023-05-18] MEDS ORDERED: magnesium 2GM in 50ml NS 50 ML IV PRN (23:15)
[2023-05-18] MEDS ORDERED: potassium Cl 20 mEq SR tablet PO PRN ×2 (23:15)
[2023-05-18] MEDS ORDERED: DEXTROSE 15 GM of carb/4 tabs (each vial/BOTTLE has 4 tablets) PO PRN ×2 (23:30)
[2023-05-18] MEDS ORDERED: dextrose 50%-water 50ml dispensing syringe IV PRN ×2 (23:30)
[2023-05-18] MEDS ORDERED: insulin Lispro (HumaLOG) vial - multi-dose SQ SCH (23:30)
[2023-05-18] MEDS ORDERED: glucagon, human recombinant 1mg kit SUBCUT PRN (23:30)
[2023-05-18] MEDS: MESSAGE TO PHARMACY PO ONE (23:35)
[2023-05-19] LABS: HEMOGLOBIN A1C 6.3 % (4.5-6.2)
[2023-05-19 03:12] LABS: ALANINE AMINOTRANSFERASE 16 U/L (12-78); ALBUMIN 3.7 G/DL (3.4-5.0); ALKALINE PHOSPHATASE 112 IU/L (46-116); ANION GAP 8 (8-16); ASPARTATE AMINO TRANSFERASE 18 U/L (10-37); BILIRUBIN,TOTAL 1.5 MG/DL (0.1-1.0); BLOOD UREA NITROGEN 16 MG/DL (7-18); BUN/CREATININE RATIO 12.9 (10.0-20.0); CALCIUM 9.3 MG/DL (8.5-10.1); CHLORIDE 105 MMOL/L (99-107); CREATININE 1.24 MG/DL (0.60-1.10); GLUCOSE 115 MG/DL (70-104); MAGNESIUM 1.6 MG/DL (1.5-2.4); PHOSPHORUS 3.1 MG/DL (2.3-4.5); POTASSIUM 4.1 MMOL/L (3.5-5.1); SODIUM 145 MMOL/L (135-145); TOTAL CARBON DIOXIDE 32.3 MMOL/L (24-32); TOTAL PROTEIN 7.3 G/DL (6.4-8.2); eCRCL 46 ML/MIN; eGFR 56 ML/MIN
[2023-05-19 03:20] LABS: BASOPHILS % (AUTO) 0.7 % (0-1); EOSINOPHILS # (AUTO) 0.3 X10'3 (0-0.9); EOSINOPHILS % (AUTO) 4.6 % (0-6); HEMATOCRIT 38.1 % (42.0-52.0); HEMOGLOBIN 12.6 g/dl (14.0-17.9); LYMPHOCYTES % (AUTO) 16.4 % (21-51); MEAN CORPUSCULAR HEMOGLOBIN 33.3 PG (27.0-31.0); MEAN CORPUSCULAR HGB CONC 33.1 g/dL (33.0-36.5); MEAN CORPUSCULAR VOLUME 100.4 FL (78-98); MEAN PLATELET VOLUME 7.1 FL (7.4-10.4); MONOCYTES # (AUTO) 0.6 X10'3 (0-0.9); MONOCYTES % (AUTO) 9.5 % (2-12); NEUTROPHILS # (AUTO) 4.4 X10'3 (1.8-7.7); NEUTROPHILS % (AUTO) 68.8 % (42-75); PLATELET COUNT 245 X10'3 (140-440); RED BLOOD COUNT 3.79 X10'6 (4.70-6.10); RED CELL DISTRIBUTION WIDTH 14.5 % (11.5-14.5); WHITE BLOOD COUNT 6.4 X10'3 (4.5-11.0)
[2023-05-19] MEDS: acetaminophen 325mg tablet PO PRN (06:49)
[2023-05-19 07:30] VITALS: BP 184/96; PULSE 73; RESP 16; TEMP 97.5; O2SAT 92
[2023-05-19] MEDS ORDERED: furosemide 10 MG/1 ML 10ml inj IV SCH (08:00)
[2023-05-19] MEDS: K and/or MAG REPLACEMENT MC SCH (08:00)
[2023-05-19] MEDS: PERFLUTREN PROTEIN-A MICROSPHR (Optison) 0.22 MG/ML 3ML VIAL IV ONE (08:45)
[2023-05-19] MEDS: furosemide 10 MG/1 ML 10ml inj IV SCH (08:47)
[2023-05-19 08:48] VITALS: RESP 16; O2SAT 92
[2023-05-19] MEDS: metolazone 2.5mg tablet PO SCH (08:48)
[2023-05-19 10:00] VITALS: BP 112/65; PULSE 75; RESP 16; TEMP 97.6; O2SAT 93
[2023-05-19 18:00] VITALS: BP 123/64; PULSE 63; RESP 14; TEMP 97.6; O2SAT 95
[2023-05-19 20:00] VITALS: RESP 16; O2SAT 92
[2023-05-19] MEDS: insulin glargine (Lantus) pen - multi-dose SQ SCH (21:00)
[2023-05-19] MEDS: donepezil 5mg tablet PO SCH (21:56)
[2023-05-19] MEDS: apixaban 5mg tablet PO SCH (21:56)
[2023-05-19 22:00] VITALS: BP 139/63; PULSE 73; RESP 16; TEMP 97.7; O2SAT 93
[2023-05-19] MEDS: latanoprost 0.005% 2.5ml ophthalmic drops EACHEYE SCH (22:01)
[2023-05-20 06:00] VITALS: BP 168/83; PULSE 82; RESP 20; TEMP 97.2; O2SAT 96
[2023-05-20 06:49] LABS: BASOPHILS % (AUTO) 0.8 % (0-1); EOSINOPHILS # (AUTO) 0.2 X10'3 (0-0.9); EOSINOPHILS % (AUTO) 4.5 % (0-6); HEMATOCRIT 36.7 % (42.0-52.0); HEMOGLOBIN 12.2 g/dl (14.0-17.9); MEAN CORPUSCULAR HEMOGLOBIN 33.4 PG (27.0-31.0); MEAN CORPUSCULAR HGB CONC 33.4 g/dL (33.0-36.5); MEAN CORPUSCULAR VOLUME 100.1 FL (78-98); MEAN PLATELET VOLUME 7.3 FL (7.4-10.4); MONOCYTES # (AUTO) 0.6 X10'3 (0-0.9); MONOCYTES % (AUTO) 10.8 % (2-12); NEUTROPHILS # (AUTO) 3.6 X10'3 (1.8-7.7); NEUTROPHILS % (AUTO) 64.9 % (42-75); PLATELET COUNT 221 X10'3 (140-440); RED BLOOD COUNT 3.66 X10'6 (4.70-6.10); RED CELL DISTRIBUTION WIDTH 14.7 % (11.5-14.5); WHITE BLOOD COUNT 5.5 X10'3 (4.5-11.0)
[2023-05-20 07:11] LABS: ALANINE AMINOTRANSFERASE 12 U/L (12-78); ALBUMIN 3.1 G/DL (3.4-5.0); ALBUMIN/GLOBULIN RATIO 0.9 (1.1-1.5); ALKALINE PHOSPHATASE 101 IU/L (46-116); ANION GAP 5 (8-16); ASPARTATE AMINO TRANSFERASE 22 U/L (10-37); BILIRUBIN,TOTAL 0.9 MG/DL (0.1-1.0); BLOOD UREA NITROGEN 24 MG/DL (7-18); BUN/CREATININE RATIO 16.3 (10.0-20.0); CALCIUM 8.9 MG/DL (8.5-10.1); CHLORIDE 106 MMOL/L (99-107); CREATININE 1.47 MG/DL (0.60-1.10); GLUCOSE 114 MG/DL (70-104); MAGNESIUM 1.7 MG/DL (1.5-2.4); PHOSPHORUS 3.7 MG/DL (2.3-4.5); POTASSIUM 4.4 MMOL/L (3.5-5.1); SODIUM 144 MMOL/L (135-145); TOTAL PROTEIN 6.7 G/DL (6.4-8.2); eCRCL 39 ML/MIN; eGFR 46 ML/MIN
[2023-05-20 08:10] VITALS: RESP 20; O2SAT 96
[2023-05-20] MEDS: spironolactone 50 MG tablet PO SCH (08:10)
[2023-05-20] MEDS: ferrous sulfate 325mg tablet PO SCH (08:10)
[2023-05-20] MEDS: citalopram 20mg tablet PO SCH (08:10)
[2023-05-20] MEDS: isosorbide mononitrate 30mg tab.SR.24H PO SCH (08:11)
[2023-05-20] MEDS: clopidogrel 75mg tablet PO SCH (08:12)
[2023-05-20] MEDS: atorvastatin 20mg tablet PO SCH (08:12)
[2023-05-20 10:00] VITALS: BP 123/69; PULSE 83; RESP 16; TEMP 97.7; O2SAT 94
[2023-05-20] MEDS ORDERED: FURO-150 PO (12:08)
== END 2023-05-20 15:57 | disposition home health service (06) | DRG 291 ==
LOC: ER 18:43 → ED HOLD 23:20 → ORTHO 4S 05-19 07:21
PROVIDERS: ADMIT Internal Medicine Pulmonary Disease; ATTEND Family Medicine
DX: I13.0 Hypertensive heart and chronic kidney disease with heart failure and stage 1 through stage 4 chronic kidney disease, or unspecified chronic kidney disease (principal); I50.23 Acute on chronic systolic (congestive) heart failure; I48.91 Unspecified atrial fibrillation; N18.30 Chronic kidney disease, stage 3 unspecified; G47.30 Sleep apnea, unspecified; I25.10 Atherosclerotic heart disease of native coronary artery without angina pectoris; K21.9 Gastro-esophageal reflux disease without esophagitis; S81.802A Unspecified open wound, left lower leg, initial encounter; E78.00 Pure hypercholesterolemia, unspecified; X58.XXXA Exposure to other specified factors, initial encounter; E11.9 Type 2 diabetes mellitus without complications; Z95.5 Presence of coronary angioplasty implant and graft; Z95.1 Presence of aortocoronary bypass graft; Z79.01 Long term (current) use of anticoagulants; Z79.899 Other long term (current) drug therapy; Z95.0 Presence of cardiac pacemaker; Z87.442 Personal history of urinary calculi; I25.2 Old myocardial infarction; Z99.81 Dependence on supplemental oxygen; Z88.8 Allergy status to other drugs, medicaments and biological substances; Z79.84 Long term (current) use of oral hypoglycemic drugs; Y93.89 Activity, other specified; Y92.89 Other specified places as the place of occurrence of the external cause; Y99.8 Other external cause status
CPT/HCPCS: 36415; 71045; 80053; 82948; 83036; 83735; 83880; 84100; 84484; 85025; 87081; 93005; 93970; 96374; 96375; 97116; 97161; 97530; 99285; A6590; C9113; G0378; J1815; J1940; J2405

== ENCOUNTER 2024-02-09 14:59 | Emergency (ER) | payer MEDICARE ==
[~2024-02-09] VITALS: Ht 177.8 cm; Wt 123.0 kg
[~2024-02-09 14:59] MED LIST changes: +FURO-150 PO; -PIOG30TA72 PO
[2024-02-09 15:31] VITALS: BP 162/79; PULSE 62; RESP 17; TEMP 97.6; O2SAT 99
[2024-02-09 16:01] LABS: BASOPHILS # (AUTO) 0.1 X10'3 (0-0.2); BASOPHILS % (AUTO) 0.8 % (0-1); EOSINOPHILS # (AUTO) 0.2 X10'3 (0-0.9); EOSINOPHILS % (AUTO) 3.2 % (0-6); HEMATOCRIT 41.7 % (42.0-52.0); HEMOGLOBIN 14.3 g/dl (14.0-17.9); LYMPHOCYTES # (AUTO) 1.1 X10'3 (1.1-4.8); LYMPHOCYTES % (AUTO) 16.5 % (21-51); MEAN CORPUSCULAR HEMOGLOBIN 34.9 PG (27.0-31.0); MEAN CORPUSCULAR HGB CONC 34.2 g/dL (33.0-36.5); MEAN CORPUSCULAR VOLUME 102.3 FL (78-98); MEAN PLATELET VOLUME 7.5 FL (7.4-10.4); MONOCYTES # (AUTO) 0.6 X10'3 (0-0.9); MONOCYTES % (AUTO) 8.9 % (2-12); NEUTROPHILS # (AUTO) 4.7 X10'3 (1.8-7.7); NEUTROPHILS % (AUTO) 70.6 % (42-75); PLATELET COUNT 232 X10'3 (140-440); RED BLOOD COUNT 4.08 X10'6 (4.70-6.10); RED CELL DISTRIBUTION WIDTH 14.5 % (11.5-14.5); WHITE BLOOD COUNT 6.6 X10'3 (4.5-11.0)
[2024-02-09 16:19] LABS: ALANINE AMINOTRANSFERASE 24 U/L (12-78); ALBUMIN 3.3 G/DL (3.4-5.0); ALKALINE PHOSPHATASE 113 IU/L (46-116); ANION GAP 8 (8-16); ASPARTATE AMINO TRANSFERASE 18 U/L (10-37); BILIRUBIN,TOTAL 0.9 MG/DL (0.1-1.0); BLOOD UREA NITROGEN 15 MG/DL (7-18); BUN/CREATININE RATIO 11.8 (10.0-20.0); CALCIUM 8.9 MG/DL (8.5-10.1); CHLORIDE 106 MMOL/L (99-107); CREATININE 1.27 MG/DL (0.60-1.10); GLUCOSE 136 MG/DL (70-104); POTASSIUM 4.2 MMOL/L (3.5-5.1); SODIUM 141 MMOL/L (135-145); TOTAL CARBON DIOXIDE 26.9 MMOL/L (24-32); TOTAL PROTEIN 6.5 G/DL (6.4-8.2); eCRCL 44 ML/MIN; eGFR 54 ML/MIN
[2024-02-09 17:50] LABS: BILIRUBIN,URINE NEGATIVE (Neg); CLARITY,URINE CLEAR (Clear); COLOR,URINE YELLOW (Yellow); GLUCOSE, URINE >=1000 mg/dl (Neg); KETONES,URINE NEGATIVE (Neg); LEUKOCYTE ESTERASE ,URINE NEGATIVE (Neg); NITRITES, URINE NEGATIVE (Neg); OCCULT BLOOD,URINE TRACE-INTACT (Neg); PROTEIN,URINE NEGATIVE (Neg)
[2024-02-09 17:51] LABS: UA COLLECTION TYPE NON-SPECIFIED
[2024-02-09 18:04] LABS: BACTERIA,URINE NONE SEEN /HPF (Neg); SQUAMOUS EPITHELIAL CELL,UR NONE SEEN /LPF (FEW); WBC,URINE NONE SEEN /HPF (0-4)
== END 2024-02-10 01:03 | disposition home or self-care (01) ==
LOC: ER 15:00
DX: S80.11XA Contusion of right lower leg, initial encounter (principal); S80.811A Abrasion, right lower leg, initial encounter; I25.10 Atherosclerotic heart disease of native coronary artery without angina pectoris; I48.91 Unspecified atrial fibrillation; I11.0 Hypertensive heart disease with heart failure; I50.9 Heart failure, unspecified; E11.9 Type 2 diabetes mellitus without complications; K21.9 Gastro-esophageal reflux disease without esophagitis; E78.00 Pure hypercholesterolemia, unspecified; F03.B18 Unspecified dementia, moderate, with other behavioral disturbance; Z88.5 Allergy status to narcotic agent; Z88.8 Allergy status to other drugs, medicaments and biological substances; Z79.899 Other long term (current) drug therapy; Z95.1 Presence of aortocoronary bypass graft; Z86.73 Personal history of transient ischemic attack (TIA), and cerebral infarction without residual deficits; Z95.0 Presence of cardiac pacemaker; Z87.442 Personal history of urinary calculi; W18.39XA Other fall on same level, initial encounter; Y93.89 Activity, other specified; Y92.89 Other specified places as the place of occurrence of the external cause; Y99.8 Other external cause status
CPT/HCPCS: 36415; 70450; 72125; 80053; 81001; 84484; 85025; 93005; 99284

== ENCOUNTER 2024-06-28 22:17 | Emergency (ER) | payer MEDICARE ==
[~2024-06-28] VITALS: Ht 177.8 cm; Wt 110.5 kg
[~2024-06-28 22:17] MED LIST changes: -ACET-1025 PO; -CLOP75TA34 PO; +DICY10CA88 PO; +EMPA10TA PO; -FURO-150 PO; -LORA10TA7 PO; +MULT-381 PO; +SPIR25TA5 PO; -SPIR50TA5 PO
[2024-06-28 22:42] LABS: BASOPHILS % (AUTO) 0.8 % (0-1); EOSINOPHILS # (AUTO) 0.3 X10'3 (0-0.9); EOSINOPHILS % (AUTO) 5.2 % (0-6); HEMATOCRIT 34.9 % (42.0-52.0); HEMOGLOBIN 11.8 g/dl (14.0-17.9); LYMPHOCYTES # (AUTO) 1.6 X10'3 (1.1-4.8); LYMPHOCYTES % (AUTO) 27.7 % (21-51); MEAN CORPUSCULAR HEMOGLOBIN 32.4 PG (27.0-31.0); MEAN CORPUSCULAR HGB CONC 33.7 g/dL (33.0-36.5); MEAN CORPUSCULAR VOLUME 96.1 FL (78-98); MEAN PLATELET VOLUME 6.9 FL (7.4-10.4); MONOCYTES # (AUTO) 0.6 X10'3 (0-0.9); MONOCYTES % (AUTO) 10.1 % (2-12); NEUTROPHILS # (AUTO) 3.2 X10'3 (1.8-7.7); NEUTROPHILS % (AUTO) 56.2 % (42-75); PLATELET COUNT 233 X10'3 (140-440); RED BLOOD COUNT 3.63 X10'6 (4.70-6.10); WHITE BLOOD COUNT 5.6 X10'3 (4.5-11.0)
--- NOTE | 2024-06-28 22:46 | Physician Documentation ---
History of Present Illness ~ Chief Complaint: Chest Pain Stated Complaint: CHEST PAIN Time Seen by MD: 22:27 Primary Medical Doctor: [facility] HPI Patient presents to the emergency room with central chest pain that began while watching TV this evening. No current chest pain. States it has been happening often. Patient was have family members at bedside who confirmed that the pat ient was DNR and has not appointment tomorrow morning for hospice care. 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 No recent stress test. Medication Reconciliation Allergies: Coded Allergies: tramadol (Verified Allergy, Intermediate, PT DOESN'T REMEMBER REACTION, 06/28/24) metformin (Verified Adverse Reaction, Intermediate, SEVERE, UNCONTROLABLE VOMITING, 06/28/24) Scheduled Allopurinol* (Zyloprim*), 2 TAB PO DAILY, (Reported) Apixaban (Eliquis), 1 TAB PO BID, (Reported) Atorvastatin Calcium (Atorvastatin Calcium), 1 TABLET PO DAILY, (Reported) Citalopram Hydrobromide (Citalopram Hbr), 1 TAB PO DAILY, (Reported) Dicyclomine Hcl* (Bentyl*), 1 CAP PO Q8H, (Reported) Donepezil Hcl (Aricept), 1 TAB PO HS, (Reported) Empagliflozin (Jardiance), 1 TAB PO DAILY, (Reported) Ferrous Sulfate (Ferrous Sulfate), 1 TAB PO DAILY, (Reported) Isosorbide Mononitrate (Isosorbide Mononitrate Er), 1 TAB PO DAILY, (Reported) Latanoprost (XALATAN ophth drops), 1 DROP EACHEYE HS, (Reported) Multivitamin with Minerals (Daily Vitamin Formula-Minerals), 1 TAB PO DAILY, (Reported) Spironolactone (Spironolactone), 25 MG PO DAILY, (Reported) Scheduled PRN Nitroglycerin SL* (Nitrostat SL*), 1 TAB SL Q5MIN PRN for Chest pain Q5min PRNx3-call MD, (Reported) Past Medical History Past Medical History: CVA/TIA/Stroke, Atrial Fibrillation, Coronary Artery Disease, Congestive Heart Failure, High Cholesterol, Hypertension, Sleep Apnea, GERD, Anemia, Chronic Kidney Disease, Kidney Stones, UTI, Diabetes, Gout Past Surgical History: angioplasty, coronary bypass surgery, heart valve surgery, pacemaker Patient History: (CAD) Coronary arteriosclerosis MOTHER ([place]) Myocardial infarction Alcohol Use: None Drug Use: none Lives with: Spouse Lives In: Home Occupation: retired Review of Systems ROS All review of systems negative except as per HPI Physical Exam Vital Signs: Temperature: 97.5, Source: Oral, Heart Rate: 69, Respiratory Rate: 15, BP: 124/76, Pulse Oximetry: 90, Weight: 110.450 Oxygen Flow Rate: 0 Physical Exam General: Patient is awake, alert, oriented and cooperative, forgetful Head: Normocephalic and atraumatic. Eyes: Conjunctival normal. EOMI. PERRL. ENT: Mucous membranes moist. Neck: Supple, trachea is midline. Chest: Clear to auscultation bilaterally without rales, rhonchi, or wheezes. There is no accessory muscle use or retractions. Cardiac: RRR without murmurs, gallops, or rubs. Extremities: Normal strength. Normal range of motion. No deformities or edema. No calf tenderness to palpation Progress Results/Orders Results/Orders Orders - RODERICK GARCIA MD Chest,Single View (06/28/24 22:37) Monitor (06/28/24 22:23) Saline Lock (06/28/24 22:23) Oxygen (06/28/24 22:23) Electrocardiogram (06/28/24 22:23) Hs Troponin I W Calculations (06/29/24 01:23) Completed Orders - RODERICK GARCIA MD Chest,Single View (06/28/24 22:37) Cbc/Diff (06/28/24 22:23) PBNP (06/28/24 22:23) CMP (06/28/24 22:23) Hs Troponin I W Calculations (06/28/24 22:23) Hs Troponin I W Calculations (06/29/24 00:23) D-Dimer (06/28/24 23:00) Normal Saline 1000ml (Sodium Chloride 10 (06/29/24 00:00) Haloperidol Lact. (Haldol) (06/29/24 00:45) Medications Received in ER Medications (Trade) Dose Ordered Sig/Jackson Route PRN Reason Start Time Stop Time Status Last Admin Dose Admin (sodium chloride 1000ml IV soln) 2,000 ml ONCE ONCE IVB 06/29/24 00:00 06/29/24 00:01 DC 06/29/24 00:46 2,000 ML (Haldol) 5 mg ONCE ONCE IM 06/29/24 00:45 06/29/24 00:46 DC 06/29/24 00:49 5 MG Vital Signs 06/28/24 06/28/24 06/28/24 06/29/24 22:25 22:35 22:58 00:43 Temp 97.5 Pulse 74 69 71 Resp 15 15 16 B/P (MAP) 147/81 124/76 (92) 148/85 (106) Pulse Ox 97 90 99 O2 Flow Rate 0 0 06/29/24 00:55 Pulse 88 Resp 16 B/P (MAP) 148/88 (108) Pulse Ox 99 O2 Flow Rate 0 Laboratory Tests Test 06/28/24 22:29 06/28/24 23:33 06/29/24 00:49 White Blood Count 5.6 Red Blood Count 3.63 L Hemoglobin 11.8 L Hematocrit 34.9 L Mean Corpuscular Volume 96.1 Mean Corpuscular Hemoglobin 32.4 H Mean Corpuscular Hemoglobin Concent 33.7 Red Cell Distribution Width 15.0 H Platelet Count 233 Mean Platelet Volume 6.9 L Neutrophils (%) (Auto) 56.2 Lymphocytes (%) (Auto) 27.7 Monocytes (%) (Auto) 10.1 Eosinophils (%) (Auto) 5.2 Basophils (%) (Auto) 0.8 Neutrophils # (Auto) 3.2 Lymphocytes # (Auto) 1.6 Monocytes # (Auto) 0.6 Eosinophils # (Auto) 0.3 Basophils # (Auto) 0.0 CBC Comment D-Dimer 0.84 H D-Dimer Comment Sodium Level 139 Potassium Level 3.6 Chloride Level 101 Carbon Dioxide Level 31.7 Anion Gap 6 L Blood Urea Nitrogen 23 H Creatinine 1.90 H Estimated GFR/1.73 m2 34 BUN/Creatinine Ratio 12.1 Glucose Level 150 H Calcium Level 8.9 Total Bilirubin 0.8 Aspartate Amino Transf (AST/SGOT) 14 Alanine Aminotransferase (ALT/SGPT) 12 Alkaline Phosphatase 111 Troponin I High Sensitivity 21 22 Pro-B-Type Natriuretic Peptide 513 H Total Protein 6.3 L Albumin 3.2 L Globulin 3.1 Albumin/Globulin Ratio 1.0 L Chemistry Comments Glucometer 165 H Troponin I High Sens Percent Delta 4 Troponin I Hi Sens Absolute Change 1 EKG/XRAY/CT/US/VASC/MRI EKG : Additional Comment EKG interpreted by myself she was time of 04/15/2026, rate 67, paced rhythm. No further analysis secondary to paced rhythm Chest X-Ray : Additional Comments One view chest x-ray interpreted by myself shows patient was status post CABG, pacemaker placed, no effusions, no pneumothorax Medical Decision Making Findings Patient was elevated heart score of four. Patient was chest pain is atypical with 2- troponins. Patient was she was to be on hospice care in given it was 2- troponins and negative D-dimer I do not feel he would benefit from admission at this time. Differential Dx:Considerations: Include: angina, aortic dissection, chest wall pain, CHF, costochondritis, myocardial infarction, pulmonary embolus Departure Disposition: 01 HOME / SELF CARE / HOMELESS Impression: Primary Impression: Chest pain Condition: Stable Discharge Instructions: Nonspecific Chest Pain, Adult Referrals: NO PRIMARY CARE PROVIDER (PCP) Signature Scribe Signature: No scribe Attestation: The note accurately reflects work and decisions made by me.Roderick Garcia MD 06/29/24 01:33 RODERICK GARCIA MD June 28, 2024 22:46
[2024-06-28 22:58] LABS: ALANINE AMINOTRANSFERASE 12 U/L (12-78); ALBUMIN 3.2 G/DL (3.4-5.0); ALKALINE PHOSPHATASE 111 IU/L (46-116); ANION GAP 6 (8-16); ASPARTATE AMINO TRANSFERASE 14 U/L (10-37); BILIRUBIN,TOTAL 0.8 MG/DL (0.1-1.0); BLOOD UREA NITROGEN 23 MG/DL (7-18); BUN/CREATININE RATIO 12.1 (10.0-20.0); CALCIUM 8.9 MG/DL (8.5-10.1); CHLORIDE 101 MMOL/L (99-107); GLUCOSE 150 MG/DL (70-104); POTASSIUM 3.6 MMOL/L (3.5-5.1); SODIUM 139 MMOL/L (135-145); TOTAL CARBON DIOXIDE 31.7 MMOL/L (24-32); TOTAL PROTEIN 6.3 G/DL (6.4-8.2); eCRCL 29 ML/MIN; eGFR 34 ML/MIN
[2024-06-28 23:06] LABS: PRO BRAIN NATRIURETIC PEPTIDE 513 PG/ML (0-450)
--- NOTE | 2024-06-28 23:10 | RADIOLOGY REPORT ---
Clinical History CP Comparison xr chest on 03/30/2024, 1 images. Technique: frontal chest x-ray Without Contrast ALEC HUFFMAN, [id number] Findings: Heart - normal lungs - no consolidation. bones - no acute fracture. status post sternotomy. fracture of the proximal humeral metaphysis on t he left Other- pacer overlies the left hemithorax. Impression: 1. No acute cardiopulmonary disease 2. Chronic appearing fracture in the proximal humeral metaphysis on the left This report was electronically signed by Benjamín Castro MD on 06/28/2024 11:08:17 PM.
[2024-06-28 23:17] LABS: D-DIMER 0.84 MG/L FEU (0-0.50)
[2024-06-29] MEDS: normal saline 1000ML IV soln IVB ONE (00:46)
[2024-06-29] MEDS: haloperidol lactate 5mg/ml inj IM ONE (00:49)
[2024-06-29 02:06] VITALS: BP 134/80; PULSE 74; RESP 18; TEMP 98.2; O2SAT 99
--- NOTE | 2024-06-29 06:21 | ELECTROCARDIOGRAPH REPORT ---
[facility] Test Date: 2024-06-28 Test Time: 22:27:35 Pat Name: ALEC HUFFMAN Department: EMERGENCY ROOM Room: Gender: M Scorekeeper: : 1940 Requested By: KAVEH FORREST Order Number: [id number] Reading MD: Dr. Nitish Khan Measurements Intervals [place] Rate: 67 P: 0 IA: 62 QRS: 134 QRSD: 141 T: 8 QT: 413 QTc: 436 Interpretive Statements Atrial-paced complexes Nonspecific intraventricular conduction delay Anterior infarct, age indeterminate Baseline wander in lead(s) V6 Electronically Signed On 06-30-2024 15:44:[address] Nitish Khan Please click the below link to view image of tracing.
== END 2024-06-29 02:14 | disposition home or self-care (01) ==
LOC: ER 22:18
DX: R07.9 Chest pain, unspecified (principal); E11.22 Type 2 diabetes mellitus with diabetic chronic kidney disease; I13.0 Hypertensive heart and chronic kidney disease with heart failure and stage 1 through stage 4 chronic kidney disease, or unspecified chronic kidney disease; I50.9 Heart failure, unspecified; N18.9 Chronic kidney disease, unspecified; E78.00 Pure hypercholesterolemia, unspecified; G47.30 Sleep apnea, unspecified; I25.10 Atherosclerotic heart disease of native coronary artery without angina pectoris; I48.91 Unspecified atrial fibrillation; Z86.73 Personal history of transient ischemic attack (TIA), and cerebral infarction without residual deficits; Z87.440 Personal history of urinary (tract) infections; Z88.5 Allergy status to narcotic agent; Z88.8 Allergy status to other drugs, medicaments and biological substances; Z95.0 Presence of cardiac pacemaker; Z95.1 Presence of aortocoronary bypass graft
CPT/HCPCS: 36415; 71045; 80053; 82948; 83880; 84484; 85025; 85379; 93005; 96360; 96372; 99285; J1630; J7030

== ENCOUNTER 2024-08-19 15:25 | Emergency (ER) | payer MEDICARE ==
[~2024-08-19] VITALS: Ht 177.8 cm; Wt 99.3 kg
[2024-08-19 15:33] VITALS: TEMP 97.7
[2024-08-19 15:49] LABS: BASOPHILS % (AUTO) 0.5 % (0-1); EOSINOPHILS # (AUTO) 0.6 X10'3 (0-0.9); EOSINOPHILS % (AUTO) 9.4 % (0-6); HEMATOCRIT 39.3 % (42.0-52.0); HEMOGLOBIN 13.2 g/dl (14.0-17.9); LYMPHOCYTES # (AUTO) 1.3 X10'3 (1.1-4.8); LYMPHOCYTES % (AUTO) 19.3 % (21-51); MEAN CORPUSCULAR HEMOGLOBIN 32.5 PG (27.0-31.0); MEAN CORPUSCULAR HGB CONC 33.7 g/dL (33.0-36.5); MEAN CORPUSCULAR VOLUME 96.4 FL (78-98); MEAN PLATELET VOLUME 6.9 FL (7.4-10.4); MONOCYTES # (AUTO) 0.7 X10'3 (0-0.9); MONOCYTES % (AUTO) 11.4 % (2-12); NEUTROPHILS # (AUTO) 3.9 X10'3 (1.8-7.7); NEUTROPHILS % (AUTO) 59.4 % (42-75); PLATELET COUNT 160 X10'3 (140-440); RED BLOOD COUNT 4.07 X10'6 (4.70-6.10); WHITE BLOOD COUNT 6.6 X10'3 (4.5-11.0)
--- NOTE | 2024-08-19 15:51 | ELECTROCARDIOGRAPH REPORT ---
[facility] Test Date: 2024-08-19 Test Time: 15:45:53 Pat Name: ALEC HUFFMAN Department: EMERGENCY ROOM Room: Gender: M Pocket Maker: : 1940 Requested By: CHONG MARIN Order Number: [id number] Reading MD: Dr. Nitish Khan Measurements Intervals [place] Rate: 79 P: -74 W[place]: 163 QRS: 21 QRSD: 176 T: -9 QT: 430 QTc: 494 Interpretive Statements Sinus or ectopic atrial rhythm Right bundle branch block Electronically Signed On 08-20-2024 18:24:[address] Nitish Khan Please click the below link to view image of tracing.
[2024-08-19 16:05] LABS: ALANINE AMINOTRANSFERASE 9 U/L (12-78); ALBUMIN 3.4 G/DL (3.4-5.0); ALBUMIN/GLOBULIN RATIO 0.9 (1.1-1.5); ALKALINE PHOSPHATASE 105 IU/L (46-116); ANION GAP 5 (8-16); ASPARTATE AMINO TRANSFERASE 14 U/L (10-37); BILIRUBIN,TOTAL 0.9 MG/DL (0.1-1.0); BLOOD UREA NITROGEN 26 MG/DL (7-18); BUN/CREATININE RATIO 13.1 (10.0-20.0); CALCIUM 9.2 MG/DL (8.5-10.1); CHLORIDE 98 MMOL/L (99-107); CREATININE 1.98 MG/DL (0.60-1.10); GLUCOSE 178 MG/DL (70-104); POTASSIUM 3.6 MMOL/L (3.5-5.1); SODIUM 134 MMOL/L (135-145); TOTAL CARBON DIOXIDE 31.4 MMOL/L (24-32); eCRCL 28 ML/MIN; eGFR 32 ML/MIN
[2024-08-19 16:13] LABS: PRO BRAIN NATRIURETIC PEPTIDE 383 PG/ML (0-450)
--- NOTE | 2024-08-19 16:14 | Physician Documentation ---
History of Present Illness ~ Chief Complaint: Weakness Stated Complaint: WEAKNESS Time Seen by MD: 15:35 OK to notify your PCP?: Yes Primary Medical Doctor: [facility] Mode of Arrival: EMS, Dropped Off HPI 83-year-old gentleman with a history of atrial fibrillation, recent Metabolic Encephalopathy , bacteremia likely colitis ,Suspected Infective Endocarditis,Sepsis , Dementia, VHD s/p bioprosthetic mitral valve placement #,Afib# HTN# Prerenal NASRIN ,dehydration, NIDDM A1c 6.7% brought to the emergency room by ambulance because of generalized weakness for two days. He is normally ambulatory. He said he is very tired and does not want to do anything. Patient denies any pain. Medication Reconciliation Allergies: Coded Allergies: tramadol (Verified Allergy, Intermediate, PT DOESN'T REMEMBER REACTION, 06/28/24) metformin (Verified Adverse Reaction, Intermediate, SEVERE, UNCONTROLABLE VOMITING, 06/28/24) Scheduled Allopurinol* (Zyloprim*), 2 TAB PO DAILY, (Reported) Amoxicillin/Potassium Clav (Augmentin 500-125 Tablet), 1 TAB PO Q12H Apixaban (Eliquis), 1 TAB PO BID, (Reported) Atorvastatin Calcium (Atorvastatin Calcium), 1 TABLET PO DAILY, (Reported) Citalopram Hydrobromide (Citalopram Hbr), 1 TAB PO DAILY, (Reported) Dicyclomine Hcl* (Bentyl*), 1 CAP PO Q8H, (Reported) Donepezil Hcl (Aricept), 1 TAB PO HS, (Reported) Empagliflozin (Jardiance), 1 TAB PO DAILY, (Reported) Ferrous Sulfate (Ferrous Sulfate), 1 TAB PO DAILY, (Reported) Isosorbide Mononitrate (Isosorbide Mononitrate Er), 1 TAB PO DAILY, (Reported) Latanoprost (XALATAN ophth drops), 1 DROP EACHEYE HS, (Reported) Multivitamin with Minerals (Daily Vitamin Formula-Minerals), 1 TAB PO DAILY, (Reported) Spironolactone (Spironolactone), 25 MG PO DAILY, (Reported) Scheduled PRN Nitroglycerin SL* (Nitrostat SL*), 1 TAB SL Q5MIN PRN for Chest pain Q5min PRNx3-call MD, (Reported) Past Medical History Past Medical History: CVA/TIA/Stroke, Atrial Fibrillation, Coronary Artery Disease, Congestive Heart Failure, High Cholesterol, Hypertension, Sleep Apnea, GERD, Anemia, Chronic Kidney Disease, Kidney Stones, UTI, Diabetes, Gout Past Surgical History: angioplasty, coronary bypass surgery, heart valve surgery, pacemaker Patient History: (CAD) Coronary arteriosclerosis MOTHER ([place]) Myocardial infarction Alcohol Use: None Drug Use: none Lives with: Spouse Lives In: Home Occupation: retired Review of Systems ROS As stated above in the HPI, otherwise all systems are reviewed and negative. Physical Exam Vital Signs: Temperature: 97.7, Source: Oral, Heart Rate: 81, Respiratory Rate: 12, BP: 125/88, Pulse Oximetry: 92, Weight: 99.300 Oxygen Flow Rate: 2.0 Physical Exam Reviewed vital signs and they are well within normal range and the patient is afebrile. Const: Adult female very lethargic Head: Atraumatic Eyes: Normal Conjunctiva ENT: Normal External Ears, Nose and Mouth. Moist mucous membranes Neck: Full range of motion. No meningismus Resp: Clear to auscultation bilaterally. Normal work of breathing Cardio: Regular rate and rhythm, no murmurs. Skin well perfused Abd: Soft, non-tender, non-distended. Normal bowel sounds. No rebound or guarding Skin: No petechiae or rashes. Warm and dry Back: No midline or flank tenderness Ext: No cyanosis, or edema Neuro: Awake and alert Psych: Normal Mood and Affect Progress Results/Orders Results/Orders Orders - CHONG MARIN MD Chest,Single View (08/19/24 15:39) Monitor (08/19/24 15:39) Saline Lock (08/19/24 15:39) Oxygen (08/19/24 15:39) Urinalysis, Cult If Indicated (08/19/24 16:27) Straight Cath For Urine Sample (08/19/24 16:27) Culture Blood (08/19/24 16:27) Ct Head (08/19/24 17:42) Page Hospitalist (08/19/24 18:22) Completed Orders - CHONG MARIN MD Chest,Single View (08/19/24 15:39) Cbc/Diff (08/19/24 15:39) BMP (08/19/24 15:39) PBNP (08/19/24 15:39) Electrocardiogram (08/19/24 15:39) Hs Troponin I W Calculations (08/19/24 15:39) Hs Troponin I W Calculations (08/19/24 17:39) Hs Troponin I W Calculations (08/19/24 18:39) CMP (08/19/24 15:39) TSH (08/19/24 15:38) LA (08/19/24 16:27) Ct Head (08/19/24 17:42) Ammonia (08/19/24 17:33) Vital Signs 08/19/24 08/19/24 08/19/24 08/19/24 15:33 16:01 16:30 17:30 Temp 97.7 Pulse 81 79 77 Resp 12 14 14 B/P (MAP) 125/88 125/88 (100) 141/80 (100) Pulse Ox 92 96 96 O2 Flow Rate 2.0 0 0 08/19/24 08/19/24 08/19/24 08/19/24 18:30 18:33 19:53 20:12 Pulse 78 Resp 18 18 18 19 B/P (MAP) 144/80 (101) Pulse Ox 94 O2 Flow Rate 0 08/19/24 20:19 Pulse 80 Resp 14 B/P (MAP) 155/92 Pulse Ox 95 Laboratory Tests Test 08/19/24 15:38 08/19/24 17:06 08/19/24 18:19 White Blood Count 6.6 Red Blood Count 4.07 L Hemoglobin 13.2 L Hematocrit 39.3 L Mean Corpuscular Volume 96.4 Mean Corpuscular Hemoglobin 32.5 H Mean Corpuscular Hemoglobin Concent 33.7 Red Cell Distribution Width 16.0 H Platelet Count 160 Mean Platelet Volume 6.9 L Neutrophils (%) (Auto) 59.4 Lymphocytes (%) (Auto) 19.3 L Monocytes (%) (Auto) 11.4 Eosinophils (%) (Auto) 9.4 H Basophils (%) (Auto) 0.5 Neutrophils # (Auto) 3.9 Lymphocytes # (Auto) 1.3 Monocytes # (Auto) 0.7 Eosinophils # (Auto) 0.6 Basophils # (Auto) 0.0 CBC Comment Sodium Level 134 L Potassium Level 3.6 Chloride Level 98 L Carbon Dioxide Level 31.4 Anion Gap 5 L Blood Urea Nitrogen 26 H Creatinine 1.98 H Estimated GFR/1.73 m2 32 BUN/Creatinine Ratio 13.1 Glucose Level 178 H Calcium Level 9.2 Total Bilirubin 0.9 Aspartate Amino Transf (AST/SGOT) 14 Alanine Aminotransferase (ALT/SGPT) 9 L Alkaline Phosphatase 105 Troponin I High Sensitivity 13 11 10 Pro-B-Type Natriuretic Peptide 383 Total Protein 7.0 Albumin 3.4 Globulin 3.6 Albumin/Globulin Ratio 0.9 L Thyroid Stimulating Hormone (TSH) 3.95 Chemistry Comments Lactic Acid Level 1.9 Troponin I High Sens Percent Delta 15 9 Troponin I Hi Sens Absolute Change -2 -1 Ammonia < 10 L Microbiology Date/Time Source Procedure Growth Status 08/19/24 17:12 Blood Arm Left Blood Culture - Preliminary NEGATIVE (LESS THAN 24 HOURS) Resulted Medical Decision Making Findings During the physical examination, the findings suggestive of acute life- threatening condition such as JVD, tracheal deviation, acidotic breathing, noisy stridorous breath sounds, pulses paradoxus, muffled heart sounds, unequal breath sounds, abdominal rigidity and rebound tenderness, focal neurological deficits, cool clammy skin, severe hypotension, severe tachycardia or bradycardia are absent. The patient is very lethargic but physical examination does not reveal any acute emergent medical condition requiring immediate resuscitative measures. EKG done at 15:45 hours revealed sinus rhythm at a rate of 79 with left axis deviation and right bundle branch block without any ischemic changes interpreted by me. CBC showed WBC 6.6 H and H13.2 and 39.3 platelets 160 Sodium 134 potassium 3.6 chloride 98 bicarb 31.4 BUN 26 creatinine 1.98 glucose 178. Troponin is 13 proBNP is 383. UA is pending. I like to admit the patient for profound weakness without neurological deficit. Dr. Garcia: Upon re-evaluation and discussion with daughter regarding her father's care. As the patient is on hospice she would prefer to him to go home and possibly at home. Discussed with her that this is reasonable in her concern is that he is developing pneumonia and we will give an antibiotic. She is happy with this plan. Differential Dx:Considerations: Include: anemia, CVA, dehydration, electrolyte imbalance, encephalopathy, hypotension, myocardial infarction Departure Disposition: HOME / SELF CARE / HOMELESS Impression: Primary Impression: Generalized weakness Additional Impressions: Lethargy Possible pneumonia Condition: Fair Discharge Instructions: Weakness Referrals: NO PRIMARY CARE PROVIDER (PCP) Prescriptions Amoxicillin/Potassium Clav (AUGMENTIN 500-125 TABLET) 500 Mg-125 Mg Tablet 1 TAB PO Q12H for 10 Days, #20 TAB Prov: KAVEH GARCIA MD 08/19/24 Education Educated: Patient, Family Signature Scribe Signature: None Attestation: The note accurately reflects work and decisions made by me.Kaveh Garcia MD 08/19/24 19:45 My dictation CHONG MARIN MD Aug 19, 2024 16:14 KAVEH GARCIA MD Aug 19, 2024 19:46
[2024-08-19 16:40] LABS: THYROID STIMULATING HORMONE 3.95 ulU/ml (0.34-4.50)
--- NOTE | 2024-08-19 17:30 | RADIOLOGY REPORT ---
CHEST RADIOGRAPH Indication: CP Technique: Single frontal view of the chest was obtained Comparison: DI CHEST,SINGLE VIEW on DOS: 06/28/24, DI CHEST,SINGLE VIEW on DOS: 03/30/24, DI CHEST,SINGLE VIEW on DOS: 05/18/23 FINDINGS: Lines and Tubes: None. Left-sided approach pacemaker is noted with leads terminating within right atr ium and right ventricle. Lungs: No focal consolidation. Pleura: No effusion. No pneumothorax. Cardiomediastinal contours: Size is within normal limits with [id number] atherosclerotic calcif ication and uncoiling of the aorta. Valvular replacement is noted. Midline sternotomy wires and surg ical clips are noted consistent with prior history of CABG. Bones: No acute osseous abnormality. IMPRESSION: No acute cardiopulmonary disease.
--- NOTE | 2024-08-19 18:02 | RADIOLOGY REPORT ---
Procedure: CT [facility] Study Date and Requested Time: 08/19/2024 05:39 PM History: Profound weakness Comparison: CT CT STROKE ALERT on DOS: 03/30/24, CT CT HEAD on DOS: 03/09/24, CT CT HEAD on DOS: 4 Dose: CTDI: 52.78 mGy DLP: 943.37 mGycm Technique: Multiplanar images obtained through the brain without intravenous contrast. Findings: Moderate diffuse brain atrophy. Mild chronic small vessel ischemic changes. No hemorrhages, masses, mass effect, midline shift, herniation or cytotoxic edema following a large v ascular territory. No intra-axial or extra-axial fluid collections. No evidence of hydrocephalus. The basal cisterns are patent. The pituitary gland, sella and parasellar regions are unremarkable. The cerebellar tonsils are in nor mal position. Left cerebellar chronic lacunar infarct. Otherwise, The cerebellum is unremarkable. Bilateral lens replacement. orbits and globes are unremarkable. Right maxillary sinus mucoperiosteal thickening and mucous retention cyst. Otherwise, the remainder of the paranasal sinuses and mastoids are clear. There are no worrisome calvarial lesions. Impression: No evidence of acute intracranial abnormality. Mucoperiosteal thickening and mucous retention cyst within the right maxillary sinus.
[2024-08-19] MEDS ORDERED: AMOX-419 PO (19:45)
[2024-08-19] MEDS: morphine 2 MG/ML inj. syringe IV ONE (19:53)
[2024-08-19] MEDS: CefTRIAXone/D5W-Rocephin 1gm 50 ML IV ONE (19:53)
[2024-08-19] MEDS: azithromycin/NS 500mg/250ml 250 ML IV ONE (19:54)
[2024-08-19] MEDS: amox tr/potassium clavulanate 500mg/125mg TAB PO ONE (20:10)
[2024-08-19] MEDS: morphine 10 MG/5 ML UD oral solution PO ONE (20:12)
[2024-08-19] MEDS: ondansetron 4mg rapidly disintigrating tab PO ONE (20:13)
[2024-08-19 20:19] VITALS: BP 155/92; PULSE 80; RESP 14; O2SAT 95
== END 2024-08-19 21:14 | disposition home or self-care (01) ==
LOC: ER 15:26
DX: R53.1 Weakness (principal); R53.83 Other fatigue; I13.0 Hypertensive heart and chronic kidney disease with heart failure and stage 1 through stage 4 chronic kidney disease, or unspecified chronic kidney disease; E11.22 Type 2 diabetes mellitus with diabetic chronic kidney disease; D63.1 Anemia in chronic kidney disease; I50.9 Heart failure, unspecified; N18.9 Chronic kidney disease, unspecified; I48.91 Unspecified atrial fibrillation; I25.10 Atherosclerotic heart disease of native coronary artery without angina pectoris; G47.30 Sleep apnea, unspecified; E78.00 Pure hypercholesterolemia, unspecified; Z86.73 Personal history of transient ischemic attack (TIA), and cerebral infarction without residual deficits; K21.9 Gastro-esophageal reflux disease without esophagitis; Z88.8 Allergy status to other drugs, medicaments and biological substances; Z95.0 Presence of cardiac pacemaker; Z95.1 Presence of aortocoronary bypass graft; Z88.5 Allergy status to narcotic agent; Z87.442 Personal history of urinary calculi
CPT/HCPCS: 36415; 70450; 71045; 80053; 82140; 83605; 83880; 84443; 84484; 85025; 87040; 93005; 99285